=== PATIENT | female | born 1940 | race Asian ===

== ENCOUNTER 2024-07-25 13:59 | Emergency (ER) | payer MEDICARE, OTHER, SELFPAY ==
--- NOTE | ~2024-07-25 | XR_ITS ---
EXAMINATION: XR humerus RT DATE: 07/25/2024 14:55 INDICATION: Right upper limb swelling. TECHNIQUE: 2 views of right humerus were obtained. COMPARISON: None. FINDINGS: Alignment is normal. No fracture. There is mild osteoarthritis of glenohumeral joint and ac romioclavicular joint. IMPRESSION: 1. Mild polyarticular osteoarthritis. Reviewed, dictated and finalized at location A.
[2024-07-25 14:24] VITALS: BP 171/74; PULSE 96; RESP 20; TEMP 37.1; O2SAT 96
--- NOTE | 2024-07-25 14:35 | ED.UPPEXIN ---
HPI - Extremity Injury (Upper) General Chief Complaint: Extremity Injury, Upper Stated Complaint: Bruise On Right Arm/Allergic Reaction Time Seen by Provider: 07/25/24 14:35 Source: patient Mode of arrival: ambulatory Limitations: no limitations History of Present Illness HPI narrative: 84 yo F presents with bruising to R upper arm. Pt noticed bruising this morning when she woke up. hx of dementia. Does not remember injury. Assisted livign staff and pt's daughter (POA) concerned for injury and pt doesn't remember. Requesting x-ray. Daughter also states that pt has male friend at [facility] living. pt denies intercourse but daughter would like STI testing as precaution. Pt denies urinary symptoms, no vaginal discharge or irritation. All systems reviewed and negative except as noted above. Related Data Home Medications Medication Instructions Recorded Confirmed aspirin 81 mg tablet,delayed 81 mg PO DAILY 07/25/24 07/25/24 release cholecalciferol (vitamin D3) 50 50 mcg PO DAILY 07/25/24 07/25/24 mcg (2,000 unit) capsule (Vitamin D3) donepezil 10 mg tablet (Aricept) 10 mg PO DAILY 07/25/24 07/25/24 glucosamine sulf dipot 1 cap PO DAILY 07/25/24 07/25/24 chlr,msm,chond 550 mg-C 30 mg-dread 1 mg capsule (Glucosamine Chondroitin) ketotifen fumarate 0.025 % (0.035 2 drp EACH EYE DAILY 07/25/24 07/25/24 %) eye drops (Zaditor) melatonin 1 mg tablet 1 mg PO HS PRN Sleep 07/25/24 07/25/24 memantine 10 mg tablet 10 mg PO DAILY 07/25/24 07/25/24 sertraline 50 mg tablet 50 mg PO DAILY 07/25/24 07/25/24 Allergies Allergy/AdvReac Type Severity Reaction Status Date / Time No Known Allergies Allergy Verified 07/25/24 14:52 Review of Systems Review of Systems: CONSTITUTIONAL: Denies fever, chills, or sweats. EYES: Denies visual changes, redness, or discharge. ENT: Denies rhinorrhea, congestion, sore throat, or otalgia. CARDIOVASCULAR: Denies chest pain, palpitations, or edema. RESPIRATORY: Denies cough or dyspnea. GASTROINTESTINAL: Denies abdominal pain, nausea, vomiting, or diarrhea. GENITOURINARY: Denies dysuria or hematuria. SKIN: Denies rash or itching. MUSCULOSKELETAL: Denies back pain, joint pain, or myalgia. Reports bruise to right upper arm with mild swelling. NEUROLOGIC: Denies headache, numbness, or weakness. PSYCHIATRIC: Denies anxiety or depression. All other systems reviewed are negative, except as documented in HPI. PMFSH Comments At time of signature, agree with nursing past medical, surgical, social and family history. There is no relevant family history pertinent to the presenting complaint. Exam Narrative: GENERAL: This is a well-nourished, well-developed patient, in no apparent distress. HEAD: normocephalic, atraumatic. EYES: PERRL. Sclera clear/white. Vision is grossly intact. EARS: External ears normal NOSE: External nose normal NECK: Neck supple, non-tender without lymphadenopathy, masses or thyromegaly. CARDIOVASCULAR: Regular rate and rhythm without murmurs, gallops, or rubs. RESPIRATORY: Clear to auscultation. Breath sounds equal bilaterally. No wheezes, rales, or rhonchi. SKIN: warm, Dry, intact with no suspicious lesions or rash, good texture and turgor. contusion to posterior-lateral aspect R upper arm approx. [id number] with purplish-blue coloring NEURO: awake, alert, and oriented to person, place and time. There were no obvious focal neurologic abnormalities. EXTREMITIES: No joint tenderness, effusion, or edema noted. Course Course Level of Care: Express Care Visit Vital Signs Vital signs: Vital Signs Temperature 37.1 C 07/25/24 14:24 Pulse Rate 96 07/25/24 14:24 Respiratory Rate 20 07/25/24 14:24 Blood Pressure 171/74 H 07/25/24 14:24 Pulse Oximetry 96 07/25/24 14:24 Oxygen Delivery Room Air 07/25/24 14:24 Temperature 37.1 C 07/25/24 14:24 Pulse Rate 96 07/25/24 14:24 Respiratory Rate 20 07/25/24 14:24 Blood Pressure 171/7
[2024-07-25 20:04] LABS: Trichomonas Vag PCR NOT DETECTED (NOT DETECTE)
[2024-07-25 20:27] LABS: Chlamydia trachomatis NOT DETECTED (NOT DETECTE); Neisseria gonorrhoeae PCR NOT DETECTED (NOT DETECTE)
== END 2024-07-25 15:30 | disposition home or self-care (01) ==
PROVIDERS: Emergency Provider Nurse Practitioner Family
DX: S40.021A Contusion of right upper arm, initial encounter (principal); X58.XXXA Exposure to other specified factors, initial encounter; Z11.3 Encounter for screening for infections with a predominantly sexual mode of transmission; F03.90 Unspecified dementia, unspecified severity, without behavioral disturbance, psychotic disturbance, mood disturbance, and anxiety; M10.9 Gout, unspecified; Z96.641 Presence of right artificial hip joint; F32.A Depression, unspecified; Z79.84 Long term (current) use of oral hypoglycemic drugs
CPT/HCPCS: 73060; 87491; 87591; 87661; 99213; G0463

== ENCOUNTER 2024-10-12 20:35 | Inpatient (IN) | payer MEDICARE, OTHER, SELFPAY ==
[2024-10-12] VITALS (9 sets, daily range): BP systolic 147–169; BP diastolic 59–91; PULSE 100–110; RESP 18–28; TEMP 37.1; O2SAT 92–95
--- NOTE | ~2024-10-12 | XR_ITS ---
XR chest 2V Ordering provider: Siddharth Cary History: 84 years Female with . Weakness . Comparison: None. FINDINGS: MEDIASTINUM: The cardiac silhouette is not enlarged. Bilateral hilar lymph node calcification. LUNGS: No effusions or pneumothorax. Opacification in the left lung base is seen suggestive of atelec tasis versus pneumonia. OTHER: No free air under the diaphragm. Degenerative changes of the spine. IMPRESSION: Minimal opacification in the left lung base suggestive of atelectasis versus pneumonia. Clinical doreen elation advised. Reviewed, dictated and finalized at location A. ITY SALES REPRESENTATIVE IMPRESSION: Minimal opacification in the left lung base suggestive of atelectasis versus pn eumonia. Clinical correlation advised.
--- NOTE | ~2024-10-12 | CT_ITS ---
EXAMINATION: CT brain wo con DATE: 10/12/2024 22:42 INDICATION: Altered mental state, weakness TECHNIQUE: Computed tomography (CT) of the head was performed without intravenous contrast. The mA wa s adjusted according to patient size. Iterative reconstruction technique was employed. Exam dose: 68 1.00 mGy-cm total exam DLP. COMPARISON: None FINDINGS: Bilateral carotid siphon internal carotid artery calcifications. There is nonspecific dimin ished attenuation of the cerebral white matter, likely due to chronic small vessel ischemic change. M ild bilateral basal ganglia calcification. Moderate low cerebral and cerebellar volume loss. No subdural or epidural hematoma. No skull fracture or bone destruction. Paranasal sinuses and mastoid air cells are normally developed and aerated. No fracture or bone destr uction of the cranial vault. IMPRESSION: Cerebral atherosclerosis and chronic small vessel ischemic changes of the white matter No acute intracranial finding or skull fracture Reviewed, dictated and finalized at Location [facility]. Reviewed, dictated and finalized at location A. OL AGE PROGRAM ASSOCIATE
--- NOTE | 2024-10-12 20:47 | ECG_ITS ---
Test Date: 2024-10-12 20:49:52 Measurements Intervals [place] Rate: 109 P: 49 AR: 156 QRS: 5 QRSD: 69 T: 58 QT: 330 QTc: 445 Interpretive Statements SINUS TACHYCARDIA LEFT ATRIAL ENLARGEMENT [-0.15mV P-WAVE IN V1/V2] SEPTAL MYOCARDIAL INFARCTION , OF INDETERMINATE AGE [40+ ms Q WAVE IN V1/V2] No previous ECG available for comparison Electronically Signed On 10-16-2024 15:58:19 [employer] by Jody Law M.D.
[2024-10-12 21:05] LABS: Basophils Percent Auto 0.1 % (0.2-1.2); Eosinophils Percent Auto 0.1 % (0-4.4); Hematocrit 42.7 % (37.0-47.0); Hemoglobin 14.5 g/dL (12.0-15.0); Immature Granulocyte Absolute 0.02 K/mm3 (0.00-0.031); Immature Granulocyte Percent A 0.3 % (0-0.5); Lymphocytes Absolute Auto 0.33 K/mm3 (0.9-3.2); Lymphocytes Percent Auto 4.5 % (18.3-44.2); Mean Corpuscular Volume 82.4 fl (80-100); Mean Platelet Volume 9.6 fl (7.4-10.4); Monocytes Absolute Auto 0.5 K/mm3 (0.1-0.6); Monocytes Percent Auto 7.1 % (2.6-8.5); Neutrophils Absolute Auto 6.4 K/mm3 (1.3-6.7); Neutrophils Percent Auto 87.9 % (45.5-73.1); Platelet Count Result 210 k/mm3 (150-375); Red Blood Count 5.18 M/mm3 (4.2-5.4); Red Cell Distribution Width 14.1 % (11.5-14.5); White Blood Count 7.3 K/mm3 (4.5-10.0)
[2024-10-12 21:14] LABS: Lactic Acid Reflex 1.7 mmol/L (0.7-2.0)
[2024-10-12 21:15] LABS: Alanine Aminotransferase 27 U/L (6-35); Albumin Level 3.8 g/dL (3.5-5.1); Alkaline Phosphatase 74 U/L (38-126); Anion Gap 5 mmol/L (4-12); Aspartate Amino Transferase 39 U/L (14-36); Bilirubin,Total 0.7 mg/dL (0.2-1.3); Blood Urea Nitrogen 14 mg/dL (7-17); Calcium 8.7 mg/dL (8.4-10.2); Carbon Dioxide 25 mmol/L (22-30); Chloride 100 mmol/L (98-107); Estimated Glomerular Filt Rate > 60; Glucose 147 mg/dL (65-110); Potassium 3.6 mmol/L (3.4-5.0); Sodium 130 mmol/L (137-145)
[2024-10-12] MEDS: SODIUM CHLORIDE 0.9% IV 1,000 ML 999 ML IV CONT ×2 (21:44→23:29)
--- NOTE | 2024-10-12 21:58 | ED_ITS ---
HPI - Weakness General Chief complaint: Weakness Stated complaint: GENERALIZED WEAKNESS X 24 HOURS Time Seen by Provider: 10/12/24 21:10 Source: patient Mode of arrival: EMS Limitations: no limitations History of Present Illness HPI Narrative: Patient is an 84 y/o female who presents to the ED via EMS with report of weakness. Patient is a resident of [facility]. Family at bedside assisted in providing information. History of dementia, alert and oriented x2. Reports they were notified by facility today the patient was increasingly weak. Was found sitting on the ground in her bedroom and was unable to get up on her own. Typically patient is able to ambulate with a walker, care for herself, toilet herself. Today unable to walk even with assistance. Family does report that patient has had a cough, congestion, URI symptoms over the last couple of days. Denied known fevers. Staff reported that patient has had a few episodes of vomiting recently. Patient denies any current pain. Related Data Home Medications ?Medication ?Instructions ?Recorded ?Confirmed ?Last Taken ?Type aspirin 81 mg tablet,delayed 81 mg PO DAILY 07/25/24 07/25/24 Unknown History release cholecalciferol (vitamin D3) 50 50 mcg PO DAILY 07/25/24 07/25/24 Unknown History mcg (2,000 unit) capsule (Vitamin D3) donepezil 10 mg tablet (Aricept) 10 mg PO DAILY 07/25/24 07/25/24 Unknown History glucosamine sulf dipot 1 cap PO DAILY 07/25/24 07/25/24 Unknown History chlr,msm,chond 550 mg-C 30 mg-dread 1 mg capsule (Glucosamine Chondroitin) ketotifen fumarate 0.025 % (0.035 2 drp EACH EYE DAILY 07/25/24 07/25/24 Unknown History %) eye drops (Zaditor) melatonin 1 mg tablet 1 mg PO HS PRN Sleep 07/25/24 07/25/24 Unknown History memantine 10 mg tablet 10 mg PO DAILY 07/25/24 07/25/24 Unknown History sertraline 50 mg tablet 50 mg PO DAILY 07/25/24 07/25/24 Unknown History Allergies Allergy/AdvReac Type Severity Reaction Status Date / Time No Known Allergies Allergy Verified 07/25/24 14:52 Review of Systems 2 Review of Systems: All systems reviewed & are unremarkable except as noted in HPI. All systems reviewed & are unremarkable except as noted in HPI and below Exam 2 Narrative: GENERAL: Elderly, somewhat tremulous. Non-toxic, in no acute distress. HEAD: Normocephalic, atraumatic. RESPIRATORY: Airway patent, respirations are tachypneic but nonlabored. No significant focal lung sounds. CARDIOVASCULAR: Tachycardic with regular rhythm without murmurs, rubs, or gallops. ABDOMINAL: Soft, nontender, nondistended. Normoactive BS. MUSCULOSKELETAL: Moves all extremities. No gross deformities. SKIN: Warm, dry, normal color. NEURO: Alert, answers most questions, intermittently confused. Follows commands. Speech clear. Cranial nerves II-XII grossly intact. Steady gait. Somewhat tremulous, no ataxic movements. No appreciable focal deficits. PSYCHIATRIC: Appropriate mood and affect. Normal interaction. Course Vital Signs Vital signs: Vital Signs Temperature 98.8 F 10/12/24 20:39 Pulse Rate 110 H 10/12/24 20:39 Respiratory Rate 26 H 10/12/24 20:39 Blood Pressure 169/91 H 10/12/24 20:39 Pulse Oximetry 93 10/12/24 20:39 Oxygen Delivery Room Air 10/12/24 20:39 Temperature 98.7 F 10/12/24 22:09 Pulse Rate 101 H 10/13/24 00:31 Respiratory Rate 21 H 10/13/24 00:31 Blood Pressure 161/77 H 10/13/24 00:31 Pulse Oximetry 93 10/13/24 00:31 Oxygen Delivery Room Air 10/12/24 20:39 MDM - Weakness MDM Narrative Medical decision making narrative: Patient presented to ED from local assisted living facility with weakness, unable to ambulate today. Has had URI symptoms over the last few days. Patient tachycardic and tachypneic upon arrival. Afebrile. No appreciable focal deficits on exam. Laboratory studies without leukocytosis. Stable H&H. Sodium slightly low at 130. Fluids ongoing. Stable kidney function. Otherwise stable electrolytes. Lactic acid within normal range at 1.7. Urine with 2+ ketones, no significant signs of infection. Small amount of blood. Viral swabs are negative. EKG with sinus tachycardia, no significant ST changes. Chest x-ray with possible left-sided pneumonia. CT brain was obtained and w/o acute findings. Discussed lab and imaging findings with patient and family at bedside. Patient is in an assisted living facility. Based on her weakness now, she would not be able to return as she is requiring much more assistance than usual. Given weakness in the setting of pneumonia and dehydration, will admit for further evaluation, PT/OT, possible acute rehab. Discussed case with Dr. Fields, hospitalist, accepted patient for admission. Patient and family in agreement with plan. CAP abx started in the ED. Medical Records Attestation: I reviewed the patient's medical records. Lab Data Attestation: I reviewed the patient's lab results. 10/12/24 20:58 10/12/24 20:58 Labs: Lab Results 10/12/24 10/12/24 Range/Units 20:58 21:42 WBC 7.3 (4.5-10.0) K/mm3 RBC 5.18 (4.2-5.4) M/mm3 Hgb 14.5 (12.0-15.0) g/dL Hct 42.7 (37.0-47.0) % MCV 82.4 (80-100) fl MCH 28.0 (26-34) pg MCHC 34.0 (32-36) g/dl RDW 14.1 (11.5-14.5) % Plt Count 210 (150-375) k/mm3 MPV 9.6 (7.4-10.4) fl Immature Gran % (Auto) 0.3 (0-0.5) % Neut % (Auto) 87.9 H (45.5-73.1) % Lymph % (Auto) 4.5 L (18.3-44.2) % [place] % (Auto) 7.1 (2.6-8.5) % Eos % (Auto) 0.1 (0-4.4) % Baso % (Auto) 0.1 L (0.2-1.2) % Lymph # (Auto) 0.33 L (0.9-3.2) K/mm3 [place] # (Auto) 0.5 (0.1-0.6) K/mm3 Eos # (Auto) 0.0 (0-0.3) K/mm3 Baso # (Auto) 0.0 (0.0-0.1) K/mm3 Abs Immat Gran (auto) 0.02 (0.00-0.031) K/mm3 Absolute Neuts (auto) 6.4 (1.3-6.7) K/mm3 Absolute Nucleated RBC 0.000 (0.0-0.012) K/mm3 Nucleated RBC % 0.0 (0.0-0.2) % Sodium 130 L (137-145) mmol/L Potassium 3.6 (3.4-5.0) mmol/L Chloride 100 (98-107) mmol/L Carbon Dioxide 25 (22-30) mmol/L Anion Gap 5 (4-12) mmol/L BUN 14 (7-17) mg/dL Creatinine 0.60 L (0.7-1.0) mg/dL Estim Creat Clear Calc Not Reportable Estimated GFR > 60 (59 - ) Glucose 147 H (65-110) mg/dL Lactic Acid 1.7 (0.7-2.0) mmol/L Calcium 8.7 (8.4-10.2) mg/dL Magnesium 1.8 (1.6-2.3) mg/dL Total Bilirubin 0.7 (0.2-1.3) mg/dL AST 39 H (14-36) U/L ALT 27 (6-35) U/L Alkaline Phosphatase 74 (38-126) U/L Total Protein 7.0 (6.3-8.2) g/dL Albumin 3.8 (3.5-5.1) g/dL Urine Color Dark yellow (Yellow) Urine Appearance Clear (Clear) Urine pH 6.0 (5.0-9.0) Ur Specific [place] 1.023 (1.001-1.035) Urine Protein 2+ H (Negative) mg/dL Urine Glucose (UA) Negative (Negative) mg/dL Urine Ketones 2+ H (Negative) mg/dL Ur Blood (Man) 1+ H (Negative) Urine Nitrate Negative (Negative) Urine Bilirubin 1+ H (Negative) Urine Urobilinogen 1.0 (<2.0) mg/dL Add Ur Microanalysis Reviewed Leukocyte Esterase Rfl Negative (Negative) KWAME/UL Urine RBC 11-20 H (0-2) /hpf Urine WBC 0-5 (0-3) /hpf Ur Squamous Epith Cells None seen (Few) /hpf Urine Bacteria None seen /hpf Urine Casts 0-2 Influenza A (RT-PCR) Negative (Negative) Influenza B (RT-PCR) Negative (Negative) RSV (RT-PCR) Negative (Negative) SARS-CoV-2 RNA (RT-PCR) Negative (Negative) Imaging Data Attestation: I personally reviewed and interpreted this imaging study as follows: Radiologist's impression: ITS Impressions Chest X-Ray 10/12/24 21:43 IMPRESSION: Minimal opacification in the left lung base suggestive of atelectasis versus pneumonia. Clinical correlation advised. STAT RAD CT brain: No acute intracranial hemorrhage. No midline shift or mass effect. The territory howard-white matter differentiation is maintained throughout. Age-related cerebral volume loss. Periventricular and subcortical white matter hypoattenuation, consistent with chronic microangiopathy. ECG Data EKG #1: Attestation: I personally reviewed and interpreted this ECG as follows: ECG completion date: 10/13/24 ECG completion time: 20:49 EKG Interpretation: tachycardia (109), sinus rhythm and non-specific ST changes Discharge Plan Discharge Clinical Impression: Weakness, Dehydration Pneumonia Qualifiers: Pneumonia type: due to unspecified organism Laterality: left Lung location: u nspecified part of lung Qualified Code(s): J18.9 - Pneumonia, unspecified organism Patient Disposition: Still a Patient Condition: Stable Patient Language: Kinyarwanda Prescriptions: No Action ketotifen fumarate [Zaditor] 0.025 % (0.035 %) Drops 2 drp EACH EYE DAILY donepezil [Aricept] 10 mg Tablet 10 mg PO DAILY aspirin 81 mg tablet,delayed release (DR/EC) 81 mg PO DAILY sertraline 50 mg tablet 50 mg PO DAILY melatonin 1 mg Tablet 1 mg PO HS PRN (Reason: Sleep) memantine 10 mg tablet 10 mg PO DAILY cholecalciferol (vitamin D3) [Vitamin D3] 50 mcg (2,000 unit) Capsule 50 mcg PO DAILY Glucosamine Chondroitin 550-30-1 mg Capsule 1 cap PO DAILY Follow-up/Referrals: PHYSICIAN,MINE SURVEYOR [Primary Care Provider] -
[2024-10-12 22:12] LABS: Magnesium 1.8 mg/dL (1.6-2.3)
[2024-10-12 22:39] LABS: Add Urine Microscopic? YES; Appearance Urine Clear (Clear); Bacteria Urine None Seen /hpf; Bilirubin Urine 1+ (Negative); Blood Urine 1+ (Negative); Color Urine Dark Yellow (Yellow); Glucose Urine UA Negative (Negative); Ketones Urine 2+ mg/dL (Negative); Leukocyte Esterase Ur Negative LEU/UL (Negative); Need Manual Microscopic Reviewed; Nitrate Urine Negative (Negative); Non Pathogenic Casts 0-2; Protein Urine 2+ mg/dL (Negative); Specific Grav Ur 1.023 (1.001-1.035); Squamous Epithelial Cell Urine None Seen /hpf (Few); WBC Urine 0-5 /hpf (0-3)
[2024-10-12 22:44] LABS: Influenza A QL RT-PCR Negative (Negative); Influenza B QL RT-PCR Negative (Negative); RSV RNA, RT-PCR Negative (Negative); SARS-CoV-2 RNA PCR Negative (Negative)
[2024-10-13] VITALS (10 sets, daily range): BP systolic 117–164; BP diastolic 61–88; PULSE 86–102; RESP 16–29; TEMP 36.6–37.5; O2SAT 92–97; BMI 24.9
--- NOTE | 2024-10-13 01:36 | PC.NURSE ---
EDER Drew states we do not need to draw blood cultures before starting antibiotics.
[2024-10-13] MEDS: AZITHROMYCIN 500 MG/NS 250 ML 500 MG/250 ML BAG 250 MG IVPB (02:12)
[2024-10-13] MEDS: SODIUM CHLORIDE 0.9% IV 1,000 ML 75 ML IV CONT ×2 (02:16→16:45)
--- NOTE | 2024-10-13 02:47 | ADMGEN ---
This patient, Daisy West, was admitted to Medical Room 261-01. Patient/family oriented to hospital policies and general routines including ID bracelet, bed and alarms, visiting hours, pain management, procedures, bathroom and other care routines, personal items, smoking policy, room service/diet, and visiting hours. Information on how to activate the Rapid Response Team has been discussed. Patient/Family are encouraged to report perceived risks to care and to ask questions if they do not understand what they are told or what they should do.
[2024-10-13 09:33] LABS: Alanine Aminotransferase 24 U/L (6-35); Albumin Level 3.2 g/dL (3.5-5.1); Alkaline Phosphatase 60 U/L (38-126); Anion Gap 2 mmol/L (4-12); Aspartate Amino Transferase 40 U/L (14-36); Bilirubin,Total 0.6 mg/dL (0.2-1.3); Blood Urea Nitrogen 9 mg/dL (7-17); Calcium 7.8 mg/dL (8.4-10.2); Carbon Dioxide 24 mmol/L (22-30); Chloride 103 mmol/L (98-107); Estimated CRCL calculation 60 ml/min; Estimated Glomerular Filt Rate > 60; Glucose 114 mg/dL (65-110); Magnesium 1.7 mg/dL (1.6-2.3); Potassium 3.2 mmol/L (3.4-5.0); Sodium 129 mmol/L (137-145)
[2024-10-13 09:39] LABS: Basophils Percent Auto 0.2 % (0.2-1.2); Hematocrit 37.9 % (37.0-47.0); Hemoglobin 12.8 g/dL (12.0-15.0); Immature Granulocyte Absolute 0.01 K/mm3 (0.00-0.031); Immature Granulocyte Percent A 0.2 % (0-0.5); Lymphocytes Absolute Auto 0.43 K/mm3 (0.9-3.2); Lymphocytes Percent Auto 7.7 % (18.3-44.2); Mean Corpuscular HGB Conc 33.8 g/dl (32-36); Mean Corpuscular Hemoglobin 27.9 pg (26-34); Mean Corpuscular Volume 82.6 fl (80-100); Mean Platelet Volume 9.7 fl (7.4-10.4); Monocytes Absolute Auto 0.5 K/mm3 (0.1-0.6); Monocytes Percent Auto 9.6 % (2.6-8.5); Neutrophils Absolute Auto 4.6 K/mm3 (1.3-6.7); Neutrophils Percent Auto 82.3 % (45.5-73.1); Platelet Count Result 195 k/mm3 (150-375); Red Blood Count 4.59 M/mm3 (4.2-5.4); Red Cell Distribution Width 14.1 % (11.5-14.5); White Blood Count 5.6 K/mm3 (4.5-10.0)
[2024-10-13] MEDS: DONEPEZIL HCL 10 MG TABLET PO (09:52)
[2024-10-13] MEDS: ASPIRIN 81 MG ENTERIC TABLET PO (09:52)
[2024-10-13] MEDS: POTASSIUM CHLORIDE 20 MEQ ER TABLET 40 MEQ PO (09:56)
[2024-10-13] MEDS: MAGNESIUM SULF 2 GM/WATER 50ML 2 GM/50 ML BAG IVPB (09:58)
--- NOTE | 2024-10-13 10:32 | P.HP_ITS ---
H&P: HPI History of Present Illness Date/Time: 10/13/24 10:32 Chief Complaint: weakness Narrative: Patient is an 84 year old female that came to the ED via EMS with report of weakness. Patient is a resident of [facility]. Patient has history of dementia, alert and oriented x2. Patient found to be increasingly weak at facility. Patient can typically ambulate with walker, care for herself, and toilet herself. Family reported to the ER that patient had a cough, congestion, and URI symptoms for the past couple of days. Patient reports that appetite has been decreased. Patient denies falls. Patient denies chest pain, palpitations, headache, dizziness, nausea, or vomiting. Laboratory studies without leukocytosis. Stable H&H. Sodium slightly low at 130. Fluids ongoing. Stable kidney function. Otherwise stable electrolytes. Lactic acid within normal range at 1.7. Urine with 2+ ketones, no significant signs of infection. Small amount of blood. Viral swabs are negative. EKG with sinus tachycardia, no significant ST changes. Chest x-ray with possible left- sided pneumonia. CT brain was obtained and w/o acute findings. Blood cultures obtained. Patient started on Azithromycin 500 mg IVPB daily and Ceftriaxone 1 gram IVPB daily. Review of Systems Review of Systems: All systems reviewed & are unremarkable except as noted in HPI and below PMFSH Family History Family History (Updated 10/13/24 @ 02:59 by Danielle Rico RN) Other Unknown family medical history Social History Social History Smoking status: Never smoker Alcohol intake: never Substance use: never Substance use type: does not use Do You Feel Safe in your Home?: Yes Lack of Transportation: No Lack of Food: Never True Current Housing: I Have Housing Concerned About Future Housing: No Difficulty Paying Gas/Electric Bills: No Difficulty Paying for Meds: No Currently Unemployed: No Education: Master's Degree or Higher Difficulty w/ Childcare or Family Care: No Spiritual care concerns: No Meds Home Medications and Allergies Home Medications ?Medication ?Instructions ?Recorded ?Confirmed ?Type aspirin 81 mg tablet,delayed 81 mg PO DAILY 07/25/24 10/13/24 History release donepezil 10 mg tablet (Aricept) 10 mg PO DAILY 07/25/24 10/13/24 History acetaminophen 650 mg 650 mg PO Q6H PRN pain 10/13/24 10/13/24 History tablet,extended release (8 Hour Pain Reliever) glucosamine sulfate 500 mg tablet 500 mg PO DAILY 10/13/24 10/13/24 History (Glucosamine) Allergies Allergy/AdvReac Type Severity Reaction Status Date / Time No Known Allergies Allergy Verified 07/25/24 14:52 Vital Signs Vital Signs - 24 hr 10/12/24 20:39 10/12/24 20:39 10/12/24 20:46 Temperature 98.8 F Pulse Rate 110 H 110 H 109 H Respiratory Rate 26 H 27 H Blood Pressure 169/91 H 168/87 H Pulse Oximetry 93 94 Oxygen Delivery Room Air 10/12/24 21:01 10/12/24 21:42 10/12/24 21:45 Temperature Pulse Rate 107 H 109 H 110 H Respiratory Rate 28 H 27 H 21 H Blood Pressure 162/89 H 162/89 H 162/86 H Pulse Oximetry 95 95 92 Oxygen Delivery 10/12/24 21:47 10/12/24 22:09 10/12/24 23:30 Temperature 98.7 F Pulse Rate 110 H 100 Respiratory Rate 28 H 18 Blood Pressure 157/89 H 147/59 H Pulse Oximetry 93 95 Oxygen Delivery 10/12/24 23:40 10/13/24 00:31 10/13/24 01:16 Temperature Pulse Rate 102 H 101 H 99 Respiratory Rate 19 21 H 29 H Blood Pressure 147/59 H 161/77 H 161/88 H Pulse Oximetry 94 93 95 Oxygen Delivery 10/13/24 02:15 10/13/24 02:45 10/13/24 02:45 Temperature 99.5 F Pulse Rate 101 H 96 Respiratory Rate 21 H 18 Blood Pressure 135/70 164/77 H Pulse Oximetry 97 96 Oxygen Delivery Room Air 10/13/24 06:00 10/13/24 09:49 Temperature 98 F 98.2 F Pulse Rate 94 86 Respiratory Rate 18 16 Blood Pressure 158/77 H 152/83 H Pulse Oximetry 95 94 Oxygen Delivery Exam Const: General: comfortable and no acute distress Eyes: Sclera: sclerae normal Pupils: Equal, round and reactive pupils present Neck: Neck: supple Resp: Effort & Inspection: normal respiratory effort Other: slightly diminished. Cardio: Rate: regular rate Rhythm: regular rhythm GI: GI Palp: Yes Soft to palpation Auscultation: normal bowel sounds Skin: General skin exam: no rashes or lesions noted Neuro: Speech: normal speech Extrem: General: no pedal edema Psych: Mental Status: mental status grossly normal Affect: normal affect H&P: Results Labs Labs: Short CBC 10/12/24 10/13/24 Range/Units 20:58 09:11 WBC 7.3 5.6 (4.5-10.0) K/mm3 Hgb 14.5 12.8 (12.0-15.0) g/dL Hct 42.7 37.9 (37.0-47.0) % Plt Count 210 195 (150-375) k/mm3 BMP 10/12/24 10/13/24 20:58 09:11 Sodium 130 L 129 L Potassium 3.6 3.2 L Chloride 100 103 Carbon Dioxide 25 24 BUN 14 9 D Creatinine 0.60 L 0.50 L Glucose 147 H 114 H Calcium 8.7 7.8 L Liver Function 10/12/24 10/13/24 Range/Units 20:58 09:11 Total Bilirubin 0.7 0.6 (0.2-1.3) mg/dL AST 39 H 40 H (14-36) U/L ALT 27 24 (6-35) U/L Alkaline Phosphatase 74 60 (38-126) U/L Albumin 3.8 3.2 L (3.5-5.1) g/dL Urine 10/12/24 Range/Units 21:42 Urine Color Dark yellow (Yellow) Urine Appearance Clear (Clear) Urine pH 6.0 (5.0-9.0) Ur Specific [place] 1.023 (1.001-1.035) Urine Protein 2+ H (Negative) mg/dL Urine Glucose (UA) Negative (Negative) mg/dL Assessment and Plan Assessment and plan (1) Pneumonia: Qualifiers: Laterality: left Lung location: unspecified part of lung Pneumonia type: due to unspecified organism Qualified Code(s): J18.9 - Pneumonia, unspecified organism Code(s): J18.9 - Pneumonia, unspecified organism Status: Acute Assessment and Plan: * Azithromycin 500 mg IVPB daily. * Ceftriaxone 1 gram IVPB daily. * NS @ 75 ml/hr * Monitor labs. * Blood cultures pending. * Encourage oral intake. (2) Weakness: Code(s): R53.1 - Weakness Status: Acute Assessment and Plan: * PT/OT (3) Dehydration: Code(s): E86.0 - Dehydration Status: Acute Assessment and Plan: * NS @75 ml/hr. * Encourage oral intake. (4) Hyponatremia: Code(s): E87.1 - Hypo-osmolality and hyponatremia Status: Acute Assessment and Plan: * Sodium 129 * NS @ 75 ml/hr. Quality VTE Prophylaxis VTE prophylaxis: mechanical ordered Hospitalist MIPS Advance Care Plan I have confirmed that the patient's Advanced Care Plan is present, code status is documented, or surrogate decision maker is listed in patient medical record.: Yes Medication Reconciliation I have utilized all available resources to obtain, update and review the patients current medications (includes all prescriptions, OTC, herbals, cannabis, and nutritional supplements).: Yes
[2024-10-13 11:30] LABS: MRSA (PCR) NOT DETECTED (NOT DETECTE)
[2024-10-14 01:46] VITALS: BP 159/77; PULSE 73; RESP 16; O2SAT 96
[2024-10-14] MEDS: AZITHROMYCIN 500 MG/NS 250 ML 500 MG/250 ML BAG 250 MG IVPB (02:21)
[2024-10-14 05:49] LABS: Basophils Percent Auto 0.3 % (0.2-1.2); Eosinophils Percent Auto 0.7 % (0-4.4); Hematocrit 39.2 % (37.0-47.0); Hemoglobin 13.3 g/dL (12.0-15.0); Immature Granulocyte Absolute 0.03 K/mm3 (0.00-0.031); Immature Granulocyte Percent A 0.5 % (0-0.5); Lymphocytes Percent Auto 10.4 % (18.3-44.2); Mean Corpuscular HGB Conc 33.9 g/dl (32-36); Mean Corpuscular Hemoglobin 28.1 pg (26-34); Mean Corpuscular Volume 82.9 fl (80-100); Mean Platelet Volume 9.6 fl (7.4-10.4); Monocytes Absolute Auto 0.8 K/mm3 (0.1-0.6); Monocytes Percent Auto 13.7 % (2.6-8.5); Neutrophils Absolute Auto 4.3 K/mm3 (1.3-6.7); Neutrophils Percent Auto 74.4 % (45.5-73.1); Platelet Count Result 185 k/mm3 (150-375); Red Blood Count 4.73 M/mm3 (4.2-5.4); Red Cell Distribution Width 13.9 % (11.5-14.5); White Blood Count 5.8 K/mm3 (4.5-10.0)
[2024-10-14 06:00] VITALS: BP 175/81; PULSE 83; RESP 16; TEMP 36.9; O2SAT 95
[2024-10-14 06:17] LABS: Alanine Aminotransferase 31 U/L (6-35); Albumin Level 3.1 g/dL (3.5-5.1); Alkaline Phosphatase 51 U/L (38-126); Anion Gap 4 mmol/L (4-12); Aspartate Amino Transferase 50 U/L (14-36); Bilirubin,Total 0.7 mg/dL (0.2-1.3); Blood Urea Nitrogen 10 mg/dL (7-17); Calcium 7.7 mg/dL (8.4-10.2); Carbon Dioxide 24 mmol/L (22-30); Chloride 106 mmol/L (98-107); Estimated CRCL calculation 73 ml/min; Estimated Glomerular Filt Rate > 60; Glucose 92 mg/dL (65-110); Magnesium 2.2 mg/dL (1.6-2.3); Potassium 3.7 mmol/L (3.4-5.0); Sodium 134 mmol/L (137-145)
[2024-10-14 09:02] VITALS: O2SAT 95
[2024-10-14] MEDS: DONEPEZIL HCL 10 MG TABLET PO (09:02)
[2024-10-14] MEDS: ASPIRIN 81 MG ENTERIC TABLET PO (09:02)
[2024-10-14] MEDS: SODIUM CHLORIDE 0.9% IV 1,000 ML 75 ML IV CONT ×2 (09:05→22:30)
--- NOTE | 2024-10-14 10:35 | P.PNIM_ITS ---
Progress Note: A&P Assessment and Plan (1) Pneumonia: Qualifiers: Laterality: left Lung location: unspecified part of lung Pneumonia type: due to unspecified organism Qualified Code(s): J18.9 - Pneumonia, unspecified organism Code(s): J18.9 - Pneumonia, unspecified organism Status: Acute Assessment and Plan: * Azithromycin 500 mg PO daily. * Ceftriaxone 1 gram IVPB daily switched to Augmentin 875-125 1 tab PO q 12. * NS @ 75 ml/hr * Monitor labs. * Blood cultures pending. * Encourage oral intake. (2) Weakness: Code(s): R53.1 - Weakness Status: Acute Assessment and Plan: * PT/OT (3) Dehydration: Code(s): E86.0 - Dehydration Status: Acute Assessment and Plan: * NS @75 ml/hr. * Encourage oral intake. (4) Hyponatremia: Code(s): E87.1 - Hypo-osmolality and hyponatremia Status: Acute Assessment and Plan: * Sodium 134. * NS @ 75 ml/hr. Subjective Date/time seen: 10/14/24 10:35 Interval history: Patient denies chest pain, palpitations, shortness of breath, sputum with color, headache, or dizziness. Patient reports that she is starting to increase oral intake. Review of Systems Review of Systems: All systems reviewed & are unremarkable except as noted in HPI and below Exam Const: General: comfortable and no acute distress Eyes: Sclera: sclerae normal Resp: Other: Slightly diminished. Cardio: Rate: regular rate Rhythm: regular rhythm GI: GI Palp: Yes Soft to palpation Auscultation: normal bowel sounds Skin: General skin exam: no rashes or lesions noted Neuro: Speech: normal speech Extrem: General: no pedal edema Psych: Mental Status: mental status grossly normal Affect: normal affect Objective Data Vital Signs Vital Signs: Vital Signs - 24 hr 10/13/24 11:16 10/13/24 16:25 10/13/24 19:36 Temperature 99.2 F Pulse Rate 88 Respiratory Rate 18 Blood Pressure 157/78 H Pulse Oximetry 94 Oxygen Delivery Room Air Room Air 10/13/24 22:09 10/13/24 22:16 10/14/24 06:00 Temperature 98.5 F Pulse Rate 102 H 86 83 Respiratory Rate 16 18 16 Blood Pressure 117/69 152/61 H 175/81 H Pulse Oximetry 92 94 95 Oxygen Delivery 10/14/24 09:02 Temperature Pulse Rate Respiratory Rate Blood Pressure Pulse Oximetry 95 Oxygen Delivery Room Air Intake/Output Intake/Output: Intake & Output 10/11/24 10/12/24 10/13/24 10/14/24 23:59 23:59 23:59 23:59 Intake Total 1000 2700 1820 Output Total 75 1500 Balance 925 1200 1820 Meds/Results Medications: Active Medications Generic Name Dose Route Start Last Admin Trade Name Freq PRN Reason Stop Dose Admin Acetaminophen 650 mg 10/13/24 01:25 Acetaminophen 325 Mg Tablet PO Q4H PRN Mild Pain (1-3) or Fever Aspirin 81 mg 10/13/24 09:00 10/14/24 09:02 Aspirin 81 Mg Enteric Tablet PO 81 mg DAILY RAE Administration Dextrose 12.5 gm 10/13/24 01:25 Dextrose 50% 25 Gm/50 Ml Syringe IV PUSH PRN PRN Hypoglycemia Protocol Donepezil HCl 10 mg 10/13/24 09:00 10/14/24 09:02 Donepezil Hcl 10 Mg Tablet PO 10 mg DAILY RAE Administration Glucagon 1 mg 10/13/24 01:25 Glucagon For Inj 1 Mg Vial IM PRN PRN Hypoglycemia Protocol Glucose 15 gm 10/13/24 01:25 Glucose Oral Gel 15 Gm Of Glucse In 37.5 Gm Tube PO PRN PRN Hypoglycemia Protocol Ceftriaxone Sodium 1 gm in 50 mls @ 100 mls/hr 10/14/24 02:00 10/14/24 01:49 Rocephin 1 Gm/Ns 50 Ml IVPB Infused Q24H RAE Infusion Sodium Chloride 1,000 mls @ 75 mls/hr 10/13/24 01:25 10/14/24 09:05 Normal Saline Iv IV CONT 75 mls/hr .[id number] RAE Administration Dextrose 1,000 mls @ 100 mls/hr 10/13/24 01:25 Dextrose 5% 1,000 Ml IVPB PRN PRN Hypoglycemia Protocol Azithromycin 500 mg in 250 mls @ 250 mls/hr 10/14/24 03:00 10/14/24 03:31 Zithromax IVPB Infused Q24H RAE Infusion Prochlorperazine Edisylate 10 mg 10/13/24 08:54 Prochlorperazine Edisylate 10 Mg/2 Ml Vial IV PUSH Q6H PRN Nausea And Vomiting Radiology Results: ITS Impressions Chest X-Ray 10/12/24 21:43 IMPRESSION: Minimal opacification in the left lung base suggestive of atelectasis versus pneumonia. Clinical correlation advised. Head CT 10/13/24 10:13 IMPRESSION: Cerebral atherosclerosis and chronic small vessel ischemic changes of the white matter No acute intracranial finding or skull fracture Labs Labs: Laboratory Results - last 24 hr 10/13/24 10/14/24 10:03 05:39 WBC 5.8 RBC 4.73 Hgb 13.3 Hct 39.2 MCV 82.9 MCH 28.1 MCHC 33.9 RDW 13.9 Plt Count 185 MPV 9.6 Immature Gran % (Auto) 0.5 Neut % (Auto) 74.4 H Lymph % (Auto) 10.4 L [place] % (Auto) 13.7 H Eos % (Auto) 0.7 Baso % (Auto) 0.3 Lymph # (Auto) 0.60 L [place] # (Auto) 0.8 H Eos # (Auto) 0.0 Baso # (Auto) 0.0 Abs Immat Gran (auto) 0.03 Absolute Neuts (auto) 4.3 Absolute Nucleated RBC 0.000 Nucleated RBC % 0.0 Sodium 134 L Potassium 3.7 Chloride 106 Carbon Dioxide 24 Anion Gap 4 BUN 10 Creatinine 0.40 L Estim Creat Clear Calc 73 Estimated GFR > 60 Glucose 92 Calcium 7.7 L Magnesium 2.2 Total Bilirubin 0.7 AST 50 H ALT 31 Alkaline Phosphatase 51 Total Protein 6.0 L Albumin 3.1 L Nasal MRSA (PCR) Not detected Quality VTE Prophylaxis VTE prophylaxis: mechanical ordered
[2024-10-14 15:37] VITALS: BP 163/85; PULSE 82; RESP 16; TEMP 36.7; O2SAT 97
[2024-10-14] MEDS: AZITHROMYCIN 250 MG TABLET 500 MG PO (21:19)
[2024-10-14] MEDS: AMOXICILLIN/CLAVULANATE K 875-125 MG TAB 1 TABLET PO (21:20)
[2024-10-15 06:00] VITALS: BP 160/82; PULSE 74; RESP 18; TEMP 36.7
[2024-10-15 06:24] LABS: Basophils Percent Auto 0.3 % (0.2-1.2); Eosinophils Absolute Auto 0.1 K/mm3 (0-0.3); Eosinophils Percent Auto 1.4 % (0-4.4); Hematocrit 39.9 % (37.0-47.0); Hemoglobin 13.3 g/dL (12.0-15.0); Immature Granulocyte Absolute 0.04 K/mm3 (0.00-0.031); Immature Granulocyte Percent A 0.6 % (0-0.5); Lymphocytes Absolute Auto 0.75 K/mm3 (0.9-3.2); Lymphocytes Percent Auto 11.4 % (18.3-44.2); Mean Corpuscular HGB Conc 33.3 g/dl (32-36); Mean Corpuscular Hemoglobin 27.5 pg (26-34); Mean Corpuscular Volume 82.4 fl (80-100); Mean Platelet Volume 9.8 fl (7.4-10.4); Monocytes Absolute Auto 0.8 K/mm3 (0.1-0.6); Monocytes Percent Auto 11.4 % (2.6-8.5); Neutrophils Absolute Auto 4.9 K/mm3 (1.3-6.7); Neutrophils Percent Auto 74.9 % (45.5-73.1); Platelet Count Result 206 k/mm3 (150-375); Red Blood Count 4.84 M/mm3 (4.2-5.4); Red Cell Distribution Width 13.5 % (11.5-14.5); White Blood Count 6.6 K/mm3 (4.5-10.0)
[2024-10-15 06:32] LABS: Alanine Aminotransferase 28 U/L (6-35); Albumin Level 3.1 g/dL (3.5-5.1); Alkaline Phosphatase 67 U/L (38-126); Anion Gap 6 mmol/L (4-12); Aspartate Amino Transferase 35 U/L (14-36); Bilirubin,Total 0.5 mg/dL (0.2-1.3); Blood Urea Nitrogen 8 mg/dL (7-17); Calcium 7.9 mg/dL (8.4-10.2); Carbon Dioxide 26 mmol/L (22-30); Chloride 103 mmol/L (98-107); Estimated CRCL calculation 68 ml/min; Estimated Glomerular Filt Rate > 60; Glucose 103 mg/dL (65-110); Magnesium 1.9 mg/dL (1.6-2.3); Potassium 2.9 mmol/L (3.4-5.0); Sodium 135 mmol/L (137-145)
[2024-10-15] MEDS: DONEPEZIL HCL 10 MG TABLET PO (09:30)
[2024-10-15] MEDS: ASPIRIN 81 MG ENTERIC TABLET PO (09:30)
[2024-10-15] MEDS: AMOXICILLIN/CLAVULANATE K 875-125 MG TAB 1 TABLET PO (09:30)
[2024-10-15] MEDS: POTASSIUM CHLORIDE 20 MEQ ER TABLET 40 MEQ PO ×2 (09:30→15:26)
--- NOTE | 2024-10-15 12:58 | PM.DS ---
DS: Admitting Diagnosis Discharge Date 10/15/24 Admitting Diagnosis weakness. DS: Discharge Diagnosis Discharge Diagnosis (1) Pneumonia: Qualifiers: Laterality: left Lung location: unspecified part of lung Pneumonia type: due to unspecified organism Qualified Code(s): J18.9 - Pneumonia, unspecified organism Code(s): J18.9 - Pneumonia, unspecified organism Status: Acute (2) Weakness: Code(s): R53.1 - Weakness Status: Acute (3) Dehydration: Code(s): E86.0 - Dehydration Status: Acute (4) Hyponatremia: Code(s): E87.1 - Hypo-osmolality and hyponatremia Status: Acute (5) Hypokalemia: Code(s): E87.6 - Hypokalemia Status: Acute DS: Summary Hospital Course Hospital Course: Patient is an 84 year old female that came to the ED via EMS with report of weakness. Patient is a resident of [facility]. Patient has history of dementia, alert and oriented x2. Patient found to be increasingly weak at facility. Patient can typically ambulate with walker, care for herself, and toilet herself. Family reported to the ER that patient had a cough, congestion, and URI symptoms for the past couple of days. Patient reports that appetite has been decreased. Patient denies falls. Patient denies chest pain, palpitations, headache, dizziness, nausea, or vomiting. Laboratory studies without leukocytosis. Stable H&H. Sodium slightly low at 130. Fluids ongoing. Stable kidney function. Otherwise stable electrolytes. Lactic acid within normal range at 1.7. Urine with 2+ ketones, no significant signs of infection. Small amount of blood. Viral swabs are negative. EKG with sinus tachycardia, no significant ST changes. Chest x-ray with possible left-sided pneumonia. CT brain was obtained and w/o acute findings. Blood cultures obtained. Patient started on Azithromycin 500 mg IVPB daily and Ceftriaxone 1 gram IVPB daily. MRSA negative. Blood cultures no growth. Transitioned to oral antibiotics. IV fluid, improved oral intake. Strength improved. Potassium supplemented. Discharged home on Azithromycin and Augmentin. Status at Discharge Functional status at discharge: uses cane/walker Overall status at discharge: patient is progressing back to baseline Time Spent with Patient Time attestation: Total time spent providing and/or coordinating discharge services: Time spent: Greater than 30 minutes Exam Const: General: comfortable and no acute distress Eyes: Sclera: sclerae normal Resp: Other: slightly diminished. Cardio: Rate: regular rate Rhythm: regular rhythm GI: GI Palp: Yes Soft to palpation Auscultation: normal bowel sounds Skin: General skin exam: no rashes or lesions noted Extrem: General: no pedal edema Psych: Mental Status: mental status grossly normal Affect: normal affect DS: Data Data Completed and Pending Labs on day of discharge: Labs from last 24 hours 10/15/24 05:14 WBC 6.6 RBC 4.84 Hgb 13.3 Hct 39.9 MCV 82.4 MCH 27.5 MCHC 33.3 RDW 13.5 Plt Count 206 MPV 9.8 Immature Gran % (Auto) 0.6 H Neut % (Auto) 74.9 H Lymph % (Auto) 11.4 L [place] % (Auto) 11.4 H Eos % (Auto) 1.4 Baso % (Auto) 0.3 Lymph # (Auto) 0.75 L [place] # (Auto) 0.8 H Eos # (Auto) 0.1 Baso # (Auto) 0.0 Abs Immat Gran (auto) 0.04 H Absolute Neuts (auto) 4.9 Absolute Nucleated RBC 0.000 Nucleated RBC % 0.0 Sodium 135 L Potassium 2.9 L Chloride 103 Carbon Dioxide 26 Anion Gap 6 BUN 8 Creatinine 0.43 L Estim Creat Clear Calc 68 Estimated GFR > 60 Glucose 103 Calcium 7.9 L Magnesium 1.9 Total Bilirubin 0.5 AST 35 ALT 28 Alkaline Phosphatase 67 Total Protein 6.0 L Albumin 3.1 L Discharge Plan Discharge Attending physician on discharge: Siddharth Vegas Discharging Clinician: Anni Jacques Anticipated Discharge Date/Time: 10/15/24 15:00 Patient Disposition: NH Retirement[facility]Asst Living Activity: may shower and as tolerated Diet: heart healthy Discharge Instructions: Take all doses of antibiotics. Drink water to hydrate. Report to provider if you develop fever, weakness, or difficulty breathing. Use walker when walking. Continue daily exercises. Thank you for entrusting [facility] with your healthcare! Patient Instructions: Antibiotic Form, Dehydration (DC), Pain Management (DC), Pneumonia (DC) Patient Language: [place] Stand Alone Forms: General Discharge Information Follow-up/Referrals: Dr. 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
[2024-10-18 18:34] LABS: Pneumococcal Antigen Urine DETECTED
--- OUTSIDE RECORDS SUMMARY | 2024-10-20 00:14 | XMS_ITS | Clinical Summary ---
Author Organization [facility] [employer] [facility] Address [address] [place] [address] Care Team Providers Care Gate Cutter Name Role Phone Jennifer Cordero MD Primary Care Provider [phone] Source Comments [facility] [employer] [facility],non-owned Affiliates and Associated Physician Practices is amultiple site organization consisting of ambulatory clinics and hospital sitesin [place], [place], [place] and [place]. This disclosure is being madepursuant to the Care Everywhere program and may not contain all information available regarding this patient. Last updated 18.[facility] [facility] Allergies Active Allergy Reactions Criticality Noted Date Comments Shellfish Allergy Urticaria Medium 03/03/2023 Medications * Be aware that medications may not be up to date on this document. Alwaysverify current medications with the patient. Medication Sig Dispensed Refills Start Date End Date Status ACETAMINOPHEN 8 HOUR PO Take 625 mg by mouth as needed Active calcium carbonate (TUMS) 750 MG chew tablet Take 1 (one) tablet by mouth once daily Active MULTIPLE VITAMINS-MINERALS PO Take by mouth once daily Active glucosamine 500 MG capsule Take 500 (five hundred) mg by mouth once daily Active Cholecalciferol (VITAMIN D-3 PO) Take 5,000 Units by mouth once daily Active melatonin 1 MG tablet Take 3 (three) tablets by mouth at bedtime Patient taking 6mg at night Active ketotifen (ZADITOR) 0.025 % ophthalmic solution 1 (one) drop every 12 hours Active Aspirin Low Dose 81 MG tablet Take 1 (one) tablet by mouth once daily 03/23/2024 Active donepezil (Aricept) 10 MG tablet Take 1 (one) tablet by mouth once daily 90 tablet 4 05/07/2024 Active memantine (Namenda) 10 MG tabletIndications: Cognitive Dysfunction Take 1 (one) tablet by mouth 2 times daily Reasons: Cognitive Dysfunction 180 tablet 1 05/07/2024 11/03/2024 Active sertraline (Zoloft) 50 MG tablet Take one each am 90 tablet 3 05/07/2024 Active lidocaine (HM Lidocaine Patch) 4 % patch Apply 1 (one) patch to skin once daily Apply patch to most painful area and remove after 12 hours. 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/2023 03/10/2023 DELISA (generalized anxiety disorder) 06/30/2023 White coat syndrome with hig h blood pressure but without hypertension 10/28/2022 Slow transit constipation 04/22/2022 Narrow angle glaucoma suspect of both eyes 06/18 Pseudophakia 06/18/2019 Osteopenia of multiple sites 05/10/2019 Vitamin D deficiency, unspecified 03/14/2019 12/08/2023 Presence of right artificial hip joint 9 12/08/2023 Primary osteoarthritis of right hip 01/19/2018 GERD (gastroesophageal reflux disease) 8 Closed fracture of distal en d of left radius with routine healing 11/28/2016 Anatomical narrow angle borderline glaucoma 01/07 Retinal dot hemorrhage 01/16/2014 Epiretinal membrane (ERM) of right eye 2 Overview (01/18/2019): Overview: O regulatory upload 07/25 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 11/04/2010 Resolved Problems Problem Noted Date Diagnosed Date Resolved Date MCI (mild cognitive impairment) 06/30/2023 03/29/2024 Encounter for general health examination 01/18/2019 01/18/2019 Nuclear age-related cataract, both eyes 07/31/2018 06/18/2019 Caregiver burden 01/19/2018 12/08/2023 Muscle strain of right thigh 06/02/2017 01/18/2019 Anxiety 05/20/2016 12/08/2023 Stress 05/20/2016 01/18/2019 Osteoarthrosis 05/06/2016 01/18/2019 Allergic conjunctivitis, acute, bilateral 01/22/2016 01/18/2019 Incipient senile cataract, bilateral 01/20/2015 06/18/2019 Health care maintenance 01/02/201501/07 Open angle with borderline findings, low risk 07/03/20 12 01/18/2019 Benign essential hypertension 11/04/2010 01/18/2019 Other and unspecified hyperlipidemia 11/04/2010 01/18/2019 Myalgia and myositis 09/10/2009 019 Routine general medical exam ination at a health care facility 05/13/2008 01/18/2019 Encounters Date Type Department Care Team Description 10/16/2024 Telephone [facility] - Centralized Scheduling [address] [place] [address] Jennifer Cordero MD 08/20/2024 Travel 07/31/2024 Telephone [facility] [address], [address] [place] [id number] Jennifer Cordero MD Pain Arm from Last 3 Months Immunizations Name Administration Dates Next Due INFLUENZA VACCINE, TRIV. (AF LURIA, FLUZONE TRIVALENT; 6MO+) (IIV3) 07/04/2014 Covid SoFi primary monoval ent 12+ yr 0.3mL Purple cap 12/21/2020,11/30/2020 HISTORIC, RSV UNSPECIFIED 09/08/2023 INFLUENZA VACCINE 06/22/2019 INFLUENZA VACCINE, ADJUVANTE D, QUADR. (FLUAD QUADRIVALENT; 65Y+) (AIIV4) 06/30/2023 INFLUENZA VACCINE, ADJUVANTE D, TRIV. (FLUAD TRIVALENT; 65Y+) (AIIV3) 06/22/2019 INFLUENZA VACCINE, HIGH-DOSE , QUADR. (FLUZONE HIGH-DOSE QUADRIVALENT; 65Y+), 0.7 ML (HD-IIV4) 10/28/2022,07/04/2022,07/31/2021,2019,07/20/2018,09/22/2017,07/10/2017,0 07/04/2016,06/26/2015 INFLUENZA VACCINE, HIGH-DOSE , TRIV. (FLUZONE HIGH-DOSE TRIVALENT; 65Y+) (HD-IIV3) 07/20/2018,09/22/2017 PNEUMOCOCCAL PPSV23 07/20/2018 Pneumococcal Pcv13 Conj 07/10/2017,05/12/2017 ZOSTER VACCINE, LIVE 07/10/2015,01/02/2015 Family History Medical History Relation Name Comments Glaucoma Neg Hx Social History Tobacco Use Types Packs/Day Years Used Date Smoking Tobacco: Never Smokeless Tobacco: Never Tobacco Cessation:Counseling Given: Not Answered Alcohol Use Standard Drinks/Week Comments No 0 (1 standard drink = 0.6 oz pur e alcohol) PHQ-2 Answer Date Recorded Patient Health Questionnaire-2 Score 0 08/20/2024 Sex and Gender Information Value Date Recorded Sex Assigned at Not on file Gender Identity Not on file Sexual Orientation Not on file Last Filed Vital Signs Vital Sign Reading Time Taken Comments Blood Pressure 132/84 08/20/2024 2:42 PM ENGINE ASSEMBLER Pulse 84 08/20/2024 2:42 PM ENGINE ASSEMBLER Temperature 36.9 ??C (98.5 ??F) 04/19/2024 11:09 AM C DT Respiratory Rate 20 12/08/2023 11:26 AM ENGINE ASSEMBLER Oxygen Saturation 96% 04/19/2024 11:09 AM CDT Inhaled Oxygen Concentration - - Weight 59.9 kg (132 lb) 03/29/2024 8:39 AM CDT Height 154.9 cm (5' 1 ) 02/13/2024 1:49 PM CDT Body Mass Index 24.94 02/13/2024 1:49 PM CDT Plan of Treatment Health Maintenance Due Date Last Done Comments MEDICARE AWV ? 12 MONTHS 1940 DTAP/TDAP/TD VACCINES (1 - Tdap) 1961 ZOSTER VACCINE (2 of 3) 09/04/2015 07/10/2015, 01/02 COVID-19 VACCINE (7 - season) 2024 07/26/2023, 06/27/2022, 01/09/2022, Additional history exists INFLUENZA VACCINE (#1) 2024 , 10/28/2022, 07/04/2022, Additional history exists DEPRESSION SCREENING 10/09/2024 01/10/2024, 10/28/2022, 04/22/2022 PNEUMOCOCCAL VACCINE 50+ Completed 018, 07/10/2017, 05/12/2017 BONE DENSITY TESTING Completed 07/28/2023, 05/21/2021, 05/23/2019, Additional history exists Respiratory Syncytial Virus (RSV) Vaccine Pt: or over 60 yrs Completed 09/08/2023 HEPATITIS B VACCINE Aged Out No longe r eligible based on patient's age to complete this topic HIB VACCINE Aged Out No longer eligi ble based on patient's age to complete this topic HPV VACCINE Aged Out No longer eligi ble based on patient's age to complete this topic MENINGOCOCCAL (Group B) VACCINE Aged Out No longer eligible based on patient's age to complete this topic MENINGOCOCCAL VACCINE Aged Out No ermias jeff eligible based on patient's age to complete this topic Medical Devices Implanted Type Area Claims Director Device Identifier Shelf Expiration Date Model / Serial / Lot Lens Iol +23.5 Ronan Hpt C Bcnvx Tecnis - [id number] Implanted:Qty: 1 on 09/19/2018 by Kaleigh Harris MD at [facility] Left: Eye [employer] 07/12/2021 [id number] / [id number] / Lens Iol +23 Ronan Mod C Bcnvx Tecnis - [id number] Implanted:Qty: 1 on 11/14/2018 by Kaleigh Harris MD at [facility] Right: Eye [employer] 07/24/2021 [id number] / [id number] / Procedures Procedure Name Priority Date/Time Associated Diagnosis Comments DEXA BONE DENSITY AXIAL SKELETON Routine 07/28/2023 11:17 AM CDT Osteopenia of multiple sites from Last 3 Months or Most Recently Relevant to Health Maintenance Results * BONE DENSITY AXIAL SKELETON(1OR MORE SITES)[id number] (07/28/2023 11:17 AM CDT) Anatomical Region Laterality Modality Other 07/31/2023 2:07 PM CDT Narrative 07/31/2023 3:25 PM CDT PROCEDURE: ??DEXA BONE DENSITY AXIAL SKELETON, DATE/TIME OF EXAM: 07/28/2023 11:18 AM, LOCATION ??[facility] INDICATION: M85.89: Osteopenia of multiple sites COMPARISON: No prior DEXA study. LEFT ??FEMORAL NECK: ?? Bone mineral density (g/cm2): ??0.766 Current T-score: -0.8 ? LUMBAR SPINE (L1-L4): Bone mineral density (g/cm2): ??1.189 Current T-score: 1.3 ? BONE DENSITY ASSESSMENT: WHO Category: ??Normal FRAX CALCULATION: FRAX not reported because: All T-scores for spine total, hip total, femoral neck at or above -1. Please see the PACS images for additional details. World Health Organization definitions of standard deviations relative to the mean T-score: Normal bone density = -1.0 and above Osteopenia = between -1.0 and -2.5 Osteoporosis = -2.5 and below > Dictated by Rayna Enamorado MD (Advertising Associate) 07/31/2023 2:07 PM Landen Cuba DO have personally reviewed and interpreted this examination/study. > Interpreting Provider: Landen Nelson DO on 07/31/2023 3:25 PM Procedure Note Landen Nelson DO - 10/31/2023 PROCEDURE: DEXA BONE DENSITY AXIAL SKELETON, DATE/TIME OF EXAM: 07/28/2023 11:18 AM, LOCATION [facility] INDICATION: M85.89: Osteopenia of multiple sites COMPARISON: No prior DEXA study. LEFT FEMORAL NECK: Bone mineral density (g/cm2): 0.766 Current T-score: -0.8 LUMBAR SPINE (L1-L4): Bone mineral density (g/cm2): 1.189 Current T-score: 1.3 BONE DENSITY ASSESSMENT: WHO Category: Normal FRAX CALCULATION: FRAX not reported because: All T-scores for spine total, hip total,femoral neck at or above -1. Please see the PACS images for additional details. World Health Organization definitions of standard deviations relative to the mean T-score: Normal bone density = -1.0 and above Osteopenia = between -1.0 and -2.5 Osteoporosis = -2.5 and below > Dictated by Rayna Enamorado MD (Advertising Associate) 07/31/2023 2:07 PM ILanden DO have personally reviewed and interpreted this examination/study. > Interpreting Provider: Landen Nelson DO on 07/31/2023 3:25 PM Jennifer Cordero MD DEXA ORDERABLES from Last 3 Months or Most Recently Relevant to Health Maintenance Advance Directives * Full Code (Latest Code Status on File) Date Activated Date Inactivated Comments 09/18/2018 4:02 PM 09/19/2018 11:44 AM Care Teams Gate Cutter Relationship Specialty Start Date End Date Jennifer oCrdero MD [address] [place] [phone] [facility] - General 01/16/18
--- NOTE | 2024-10-21 13:03 | PC.NURSE ---
Blood cx are negative.
== END 2024-10-15 16:56 | DRG 194 ==
LOC: ANHED 10-13 00:20 → ANH2MED 10-13 01:59
PROVIDERS: Emergency Medicine; Admitting Provider Internal Medicine; Emergency Provider Physician Assistant; Visit Provider Nurse Practitioner Family
DX: J18.9 Pneumonia, unspecified organism (principal); E87.1 Hypo-osmolality and hyponatremia; E86.0 Dehydration; E87.6 Hypokalemia; F03.90 Unspecified dementia, unspecified severity, without behavioral disturbance, psychotic disturbance, mood disturbance, and anxiety
CPT/HCPCS: 36415; 70450; 71046; 80053; 81001; 83605; 83735; 85025; 87040; 87449; 87637; 87641; 87899; 93005; 96361; 96365; 96366; 96367; 97110; 97161; 97165; 97530; 99285; A9270; G0378; J0456; J0696; J3475; J7030

== ENCOUNTER 2025-01-24 17:32 | Emergency (ER) | payer MEDICARE, OTHER, SELFPAY ==
--- NOTE | ~2025-01-24 | CT_ITS ---
CT cervical spine wo con Ordering provider: Kayden Saldana MD History: . neck pain . Comparison: None. Technique: CT of the cervical spine was performed without contrast. Sagittal and coronal reformatted images were also obtained and reviewed. Automated exposure control and iterative reconstruction josiah hnique were employed. The dose-length product was 422.94 mGy-cm. FINDINGS: VERTEBRAE: No subluxation or acute fracture. The occipital condyles are intact. DISC SPACES: Narrowing of the disc C5-C6, C6-C7, C7-T1 and T1-2.. Multilevel facet joint disease. Mul tilevel uncovertebral joint osteoarthritic changes. Narrowing of the right foramen at the level of C2 -C3 and C4-C5. Bilateral narrowing of the level of C3-C4. Narrowing of the left foramina at the level of C5-C6 and C6-C7. PARASPINOUS SOFT TISSUES: Normal. IMPRESSION: No acute osseous abnormality cervical spine. Multilevel degenerative disc disease. Reviewed, dictated and finalized at location A.
--- OUTSIDE RECORDS SUMMARY | 2025-01-24 17:35 | XMS_ITS | Continuity of Care Document ---
Author Organization [facility] Address [address] [place] [address] Phone Care Team Providers Care Advertising Account Executive Name Role Phone Susan Lopez Unavailable Unavailable Procedures Procedure Date Eye Exam & Treatment SV Poly Carb Sph Morgan To +/- 4 009 Frames Deluxe [facility] SV Poly Carb Sph +/- 7.12 To +/- 20 D Ma [facility] Eye Exam & Treatment Office/outpatient Visit, Est Eye Exam Established Pt Advance Directives Directive Yes / No Effective Date File Name No Information Encounters Encounter Description Practice Location Reason(s) For Visit Diagnoses Date Provider Providers Copied on Encounter [facility], [id number] [place] [address] [address], [place], [place], [id number], [place] tel:[phone] [facility] [place] [facility] No Information 2-201 0 Jessica Davis. [address] [place] , [address], [place], [address], [place]. tel:[phone] [facility], [address] [place] [address] [address], [place], [place], [id number], [place] tel:[phone] [facility] No Information 1-200 9 [facility] . [address] [facility], [address], [place], [place], [id number], [place]. tel:[phone] Referring Provider: Susan Alva, [address], [place], [address]. tel:[phone] ana Provider: Cornel Monroe [address] [place], [place] [address]ate Ctr, [place], [address]. tel:[phone] [facility], [address] [place] [address] [address], [place], [place], [id number], [place] tel:[phone] [facility] [place] No Information February-2 1-200 9 [facility] . [address] [facility], [address], [place], [place], [id number], [place]. tel:[phone] Referring Provider: Susan Alva, [address] [place], [place] [address]ate [place] [address], [place], [place], [facility]. tel:[phone] perez Provider: Cornel Monroe, [address] [place], [place] [address]ate [facility], [place], [address]. tel:[phone] [facility], [address] [place] [address] [address], [place], [place], [id number], [place] tel:[phone] [facility] [place] No Information Apr-0 9-200 9 Jessica Davis. [facility] [place] , [address], [place], [place], [facility], [place]. tel:[phone] Office/outpat ient Visit, [facility], [address] [place] [address] [address], [place], [place], [id number], [place] tel:[phone] [facility] [place] No Information Apr-1 0-200 8 Jessica Wren [address], [place], [address], [place]. tel:[phone] [facility], [address] [place] [address] [address], [place], [place], [id number], [place] tel:[phone] [facility] [place] No Information Oct-0 4-200 7 Jessica Perez [facility] , [address], [place], [address], [place]. tel:[phone] Family History Family Member Type Diagnosis Age At Onset No Information Payers Payer name Insurance type Covered democrat ID Daya medina(s) [facility] Commercial CI [id number] Social History Type Description Quantity Date Captured Comments Sex Female Smoking Status No Information Chief Complaint And Reason For Visit No Information Reason For Referral Reason For Referral No Information History Of Present Illness Encounter Date Complaint History Of Prese nt Illness No Information Functional Status Date Functional Assessmen t No Information Instructions Date Instruction Additional Infor mation No Information Assessments Type Assessment Date No Information Patient Care Teams Name Effective Dates (start - stop) Status Members No Information
--- OUTSIDE RECORDS SUMMARY | 2025-01-24 17:35 | XMS_ITS | Encounter Summary ---
Author Organization [facility] Address [address] [facility] [place] [address] Care Team Providers Care Sharepoint Administrator Name Role Phone Jennifer Cordero MD Primary Care Provider [phone] Reason for Visit * Reason Onset Date Comments Referral Request 12/27/2023 Encounter Details Date Type Department Care Team (Late st Contact Info) Description 12/27/2023 Telephone [facility] [address] [place] [address] Jennifer Cordero MD [address] [address] Referral Request Social History Tobacco Use Types Packs/Day Years Used Date Smoking Tobacco: Never Smokeless Tobacco: Never Alcohol Use Standard Drinks/Week Comments No 0 (1 standard drink = 0.6 oz pur e alcohol) PHQ-2 Answer Date Recorded Patient Health Questionnaire-2 Score 0 06/30/2023 Comments No Sex and Gender Information Value Date Recorded Sex Assigned at Not on file Legal Sex Female 9:22 AM CDT Gender Identity Not on file Sexual Orientation Not on file documented as of this encounter Functional Status * Is person deaf or have serious hearing difficulty? Answer Date of Assessment Author No 11/14/2018 11:45 AM Cammie Oro RN * Is person blind or have serious difficulty seeing? Answer Date of Assessment Author Yes 11/14/2018 11:45 AM Cammie Oro RN * Does person have serious difficulty walking/climbing stairs? Answer Date of Assessment Author No 11/14/2018 11:45 AM Cammie Oro RN * Does person have difficulty dressing/bathing? Answer Date of Assessment Author No 11/14/2018 11:45 AM Cammie Oro RN * Does person have difficulty doing errands alone? Answer Date of Assessment Author No 11/14/2018 11:45 AM Cammie Oro RN documented as of this encounter Mental Status * Does person have difficulty concentrating/remembering/making decisions? Answer Entry Date Author No 11/14/2018 11:45 AM Cammie Oro RN documented in this encounter Miscellaneous Notes * Telephone Encounter - Tatiana Ramos - 12/27/2023 12:11 PM CDT Current Provider name:ALEJANDRA Reason for call: Patient's daughter Deepthi called into the scheduling line requesting to know if [facility] (See 12/22/23 clinic note) as they have yet to receive the fax from us. Daughter provided the fax numbers below. [facility] Electronic fax [phone] Physical fax [phone] Patient Call Back number: [phone] documented in this encounter Plan of Treatment Not on file documented as of this encounter Visit Diagnoses Not on filedocumented in this encounter Care Teams Sharepoint Administrator Relationship Specialty Start Date End Date Jennifer Cordero MD [address] [address] PCP - General 01/16/18 documented as of this encounter
--- OUTSIDE RECORDS SUMMARY | 2025-01-24 17:35 | XMS_ITS | Encounter Summary ---
Author Organization [facility] Address [address] [facility] [place] [address] Care Team Providers Care Chicken Tender Name Role Phone Jennifer Cordero MD Primary Care Provider [phone] Reason for Visit * Reason Onset Date Comments MEDICATION REFILL 05/04/2024 Encounter Details Date Type Department Care Team (Late st Contact Info) Description 05/04/2024 Refill [facility] [address] [place] [id number] Jennifer Cordero MD [address] [address] MEDICATION REFILL Social History Tobacco Use Types Packs/Day Years Used Date Smoking Tobacco: Never Smokeless Tobacco: Never Alcohol Use Standard Drinks/Week Comments No 0 (1 standard drink = 0.6 oz pur e alcohol) PHQ-2 Answer Date Recorded Patient Health Questionnaire-2 Score 2 04/17/2024 Comments No Sex and Gender Information Value [...] Cammie Oro RN documented in this encounter Plan of Treatment Not on file documented as of this encounter Visit Diagnoses Not on filedocumented in this encounter Care Teams Chicken Tender Relationship Specialty Start Date End Date Jennifer Cordero MD [address] [address] PCP - General 01/16/18 documented as of this encounter
--- OUTSIDE RECORDS SUMMARY | 2025-01-24 17:35 | XMS_ITS | Encounter Summary ---
Author Organization [facility] Address [address] [place] [address] Care Team Providers Care Structural Shop Helper Name Role Phone Jennifer Cordero MD Primary Care Provider [phone] Encounter Details Date Type Department Care Team (Late st Contact Info) Description 10/16/2024 Telephone [facility]uling [address] [place] [address] Jennifer Cordero MD [address] [id number] Social History Tobacco Use Types Packs/Day Years Used Date Smoking Tobacco: Never Smokeless Tobacco: Never Alcohol Use Standard Drinks/Week Comments No 0 (1 standard drink = 0.6 oz pur e alcohol) PHQ-2 Answer Date Recorded Patient Health Questionnaire-2 Score 0 08/20/2024 Comments No Sex and Gender Information Value [...] on filedocumented in this encounter Care Teams Structural Shop Helper Relationship Specialty Start Date End Date Jennifer Cordero MD [address] [address] PCP - General 01/16/18 documented as of this encounter
--- OUTSIDE RECORDS SUMMARY | 2025-01-24 17:35 | XMS_ITS ---
Author Name Roman Sheridan Address [address] [place] [address] Phone [phone] [facility] Address [address] [place] [address] Phone [phone] Care Team Providers Care Station Master Name Role Phone Roman Sheridan Unavailable Nuvia Grimes Unavailable Jazmin Crandall Unavailable Functional Status No Results Mental Status No Results Allergies and Intolerances Name Onset Date Reaction Severity ibuprofen (Allergy) MonMar 14 19:48:00 EDT 2019 Medications Medication Directions Start Date End Date Vitamin D3 5,000 unit tablet 5000 unit TABLET Oral 1 Time Daily dx supplement MonMar 22 09:00:00 EDT 2018Mar 29 01:00:00 EDT 2019 TUBErsol 5 tub. unit/0.1 mL intradermal injection solution Read Results VIAL (ML) Other 1 Time Weekly for 2 Weeks Read results between 48-72 hours after 1st and 2nd 1 week apart. If positive do chest x-ray to rule out active disease. MonMar 18 13:00:00 EDT 2018Mar 15 13:09:00 EDT 2019 TUBErsol 5 tub. unit/0.1 mL intradermal injection solution 0.1 ml VIAL (ML) Intradermal 1 Time Weekly for 2 Weeks (PPD) 1st injection upon admission. Read between 48 and 72 hours and give 2nd injection 1 week after the 1st if result is negative. If positive result, proceed with chest x-ray to rule out active disease. MonMar 15 13:00:00 EDT 2018Mar 15 13:09:00 EDT 2019 Colace 100 mg capsule 1 cap CAPSULE Oral PRN 1 Time Daily constipation MonMar 15 13:00:00 EDT 2018Mar 29 01:00:00 EDT 2019 senna 8.6 mg tablet 2 tabs TABLET Oral P RN 1 Time Daily constipation MonMar 15 13:00:00 EDT 2018Mar 29 01:00:00 EDT 2018 ketotifen 0.025 % (0.035 %) eye drops 1 gtt DROPS Both Eyes PRN 2 Times Daily dry eyes MonMar 15 13:00:00 ED2018Mar 29:00:00 EDT 2018 Artificial Tears (glycerin-peg) 1 %-0.3 % eye drops 1 gtt DROPS Both Eyes PRN 4 Times Daily dry eyes MonMar 15 13:00:00 EDT 2018Mar 29:00:00 EDT 2018 acetaminophen 325 mg tablet 650 mg TABLE T Oral PRN Every 6 Hours pain MonMar 14 19:00:00 EDT 2018Mar 29 01:00:00 EDT 2018 aspirin 81 mg chewable tablet 81 mg TABLET,CHEWABLE Oral 2 Times Daily for 42 Days prevention DVT MonMar 14 09:00:00 EDT 2018Mar 29 01:00:00 EDT 2018 calcium carbonate 500 mg calcium (1,250 mg) chewable tablet 1 tab TABLET,CHEWABLE Oral 1 Time Daily supplement MonMar 15 09:00:00 ED2018Mar 29 01:00:00 EDT 2019 docosahexanoic acid 100 mg capsule 100 mg CAPSULE Oral 1 Time Daily supplement MonMar 14 09:00:00 EDT 2018Mar 15 15:55:00 EDT 2019 famotidine 20 mg tablet 20 m TABLET Oral PRN 2 Times Daily heartburn MonMar 14 19:00:00 ED2018Mar 29 01:00:00 EDT 2019 Glucosamine 500 mg tablet 500 mg TABLET Oral 1 Time Daily supplement MonMar 15 09:00:00 EDT 2018Mar 15 15:55:00 EDT 2019 HYDROcodone 5 mg-acetaminophen 325 mg tablet 5-325 mg 1 tab TABLET Oral PRN Every 4 Hours pain MonMar 14 19:00:00 ED2018Mar 29 01:00:00 EDT 2019 HYDROcodone 5 mg-acetaminophen 325 mg tablet 2 abs TABLET Oral PRN Every 4 Hours pain MonMar 14 19:00:00 ED2018Mar 29 01:00:00 EDT 2019 ketotifen 0.025 % (0.035 %) eye drops 1 gtt DROPS Both Eyes PRN dry eyes MonMar 14 19:00:00 EDT 2018Mar 15 16:03:00 EDT 2018 Artificial Tears (glycerin-peg) 1 %-0.3 % eye drops 1 gtt DROPS Both Eyes PRN dry eyes MonMar 14 19:00:00 EDT 2018Mar 15 16:03:00 EDT 2018 multivitamin tablet 1 tab TABLET Oral 1 Time Daily supplement MonMar 15 09:00:00 EDT 2018Mar 29 01:00:00 EDT 2018 Milk of Magnesia 400 mg/5 mL oral suspension 30mL SUSPENSION, ORAL (FINAL DOSE FORM) Oral PRN 1 Time Daily Constipation MonMar 14 20:00:00 EDT 2018Mar 29 01:00:00 EDT 2018 Problems Active Concerns * Aftercare following joint replacement surgery* Code: * Start Date: MonMar 14 00:00:00 EDT 2018 * End Date: * Text: * Presence of right artificial hip joint* Code: * Start Date: MonMar 14 00:00:00 EDT 2018 * End Date: * Text: * Other specified congenital deformities of hip* Code: * Start Date: MonMar 14 00:00:00 EDT 2019 * End Date: * Text: * Bilateral primary osteoarthritis of hip* Code: * Start Date: MonMar 14 00:00:00 EDT 2018 * End Date: * Text: * Gastro-esophageal reflux disease without esophagitis* Code: * Start Date: MonMar 14 00:00:00 EDT 2019 * End Date: * Text: * Nocturia* Code: * Start Date: MonMar 14 00:00:00 EDT 2019 * End Date: * Text: * Constipation, unspecified* Code: * Start Date: MonMar 14 00:00:00 EDT 2019 * End Date: * Text: * Elevated blood-pressure reading, without diagnosis of hypertension* Code: * Start Date: MonMar 14 00:00:00 EDT 2019 * End Date: * Text: * Dry eye syndrome of unspecified lacrimal gland* Code: * Start Date: MonMar 14 00:00:00 EDT 2019 * End Date: * Text: * Hypocalcemia* Code: * Start Date: MonMar 14 00:00:00 EDT 2019 * End Date: * Text: * Vitamin D deficiency, unspecified* Code: * Start Date: MonMar 14 00:00:00 EDT 2018 * End Date: * Text: Reason for Referral Past Medical History
--- OUTSIDE RECORDS SUMMARY | 2025-01-24 17:35 | XMS_ITS | Encounter Summary ---
Author Organization [facility] Address [address] [facility] [place] [address] Care Team Providers Care Brick Sorter Name Role Phone Jennifer Cordero MD Primary Care Provider [phone] Encounter Details Date Type Department Care Team (Late st Contact Info) Description 09/26/2018 Telephone [facility] [address] [place] [address] Kaleigh Harris MD No information available Social History Tobacco Use Types Packs/Day Years Used Date Smoking Tobacco: Never Smokeless Tobacco: Never Alcohol Use Standard Drinks/Week Comments No 0 (1 standard drink = 0.6 oz pur e alcohol) Comments No Sex and Gender Information Value Date Recorded Sex Assigned at Not on file Legal Sex Female 9:22 AM CDT Gender Identity Not on file Sexual Orientation Not on file documented as of this encounter Functional Status * Is person deaf or have serious hearing difficulty? Answer Date of Assessment Author No 09/19/2018 10:38 AM Rebeca Decker RN * Is person blind or have serious difficulty seeing? Answer Date of Assessment Author No 09/19/2018 10:38 AM Rebeca Decker RN * Does person have serious difficulty walking/climbing stairs? Answer Date of Assessment Author No 09/19/2018 10:38 AM Rebeca Decker, EMILY * Does person have difficulty dressing/bathing? Answer Date of Assessment Author No 09/19/2018 10:38 AM Rebeca Decker RN * Does person have difficulty doing errands alone? Answer Date of Assessment Author No 09/19/2018 10:38 AM Rebeca Decker RN documented as of this encounter Mental Status * Does person have difficulty concentrating/remembering/making decisions? Answer Entry Date Author No 09/19/2018 10:38 AM Rebeca Decker RN documented in this encounter Plan of Treatment Not on file documented as of this encounter Visit Diagnoses Not on filedocumented in this encounter Care Teams Brick Sorter Relationship Specialty Start Date End Date Jennifer Cordero MD [address] [address] PCP - General 01/16/18 documented as of this encounter
--- OUTSIDE RECORDS SUMMARY | 2025-01-24 17:36 | XMS_ITS | Clinical Summary ---
Author Organization [facility] Address [address] [place] [address] Care Team Providers Care Teacher Education Director Name Role Phone Jennifer Cordero MD Primary Care Provider [phone] Source Comments [facility],non-owned Affiliates and Associated Physician Practices is amultiple site organization consisting of ambulatory clinics and hospital sitesin [place], [place], [place] and [place]. This disclosure is being madepursuant to the Care Everywhere program and may not contain all information available regarding this patient. Last updated 18.[facility] Allergies Active Allergy Reactions Criticality Noted Date Comments Shellfish Allergy Urticaria Medium 03/03/2023 Medications * This document contains information received from the source organization and may not represent a complete record from that organization. * Be aware that medications may not be up to date on this document. Alwaysverify current medications with the patient. ACETAMINOPHEN 8 HOUR PO Take 625 mg by mouth as needed Active calcium carbonate (TUMS) 750 MG chew tablet Take 1 (one) tablet by mouth once daily Active MULTIPLE VITAMINS-MINERAL S PO Take by mouth once daily Active [...] 1 (one) tablet by mouth once daily 4 Active donepezil (Aricept) 10 MG tablet Take 1 (one) tablet by mouth once daily 90 tablet 4 4 Active memantine (Namenda) 10 MG tabletIndication s:Cognitive Dysfunction Take 1 (one) tablet by mouth 2 times daily Reasons: Cognitive Dysfunction 180 tablet 1 4 Active sertraline (Zoloft) 50 MG tablet Take one each am 90 tablet 3 4 Active lidocaine (HM Lidocaine Patch) 4 % patch Apply 1 (one) patch to skin once daily Apply patch to most painful area and remove after 12 hours. 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 (AF LURIA, FLUZONE TRIVALENT; 6MO+) (IIV3) 07/04/2014 Covid [employer] primary monoval ent 12+ yr 0.3mL Purple [...] Comments Blood Pressure 132/84 08/20/2024 2:42 PM MRI MANAGER Pulse 84 08/20/2024 2:42 PM MRI MANAGER Temperature 36.9 C (98.5 F) 04/19/2024 11:09 AM CDT Respiratory Rate 20 12/08/2023 11:26 AM MRI MANAGER Oxygen Saturation 96% 04/19/2024 11:09 AM CDT Inhaled Oxygen Concentration - - Weight 59.9 kg (132 lb) 03/29/2024 8:39 AM CDT Height 154.9 cm (5' 1 ) 02/13/2024 1:49 PM CDT Body Mass Index 24.94 02/13/2024 1:49 PM CDT Plan of Treatment Health Maintenance Due Date Last Done Comments MEDICARE AWV 12 MONTHS 1942 DTAP/TDAP/TD VACCINES (1 - Tdap) 1961 ZOSTER VACCINE (2 of 3) 09/04/2015 07/10/2015, 01/02 COVID-19 VACCINE ( season) 2024 07/26/2023, 06/27/2022, 01/09/2022, Additional history exists DEPRESSION SCREENING 10/09/2024 01/10/2024, 10/28/2022, 04/22/2022 INFLUENZA VACCINE (Season Ended) 2025 06/30/2023, 10/28/2022, 07/04/2022, Additional history exists PNEUMOCOCCAL VACCINE 50+ Completed 018, 07/10/2017, 05/12/2017 [...] complete this topic MENINGOCOCCAL (Group B) VACCINE SHARED DECISION-MAKING Aged Out No longer eligible based on patient's age to complete this topic MENINGOCOCCAL GROUPS A/C/Y/W VACCINE Aged Out No longer eligible based on patient's age to complete this topic Medical Devices Implanted Type Area Maxillofacial Surgeon Device Identifier Shelf Expiration Date Model / Serial / Lot Lens Iol +23.5 Ronan Hpt C Bcnvx Tecnis - [id number] Implanted:Qty: 1 on 09/19/2018 by Kaleigh Harris MD at [facility] Left: Eye [employer] 07/12/2021 [id number] / [id number] / Lens Iol +23 Ronan Mod C Bcnvx Tecnis - [id number] Implanted:Qty: 1 on 11/14/2018 by Kaleigh Harris MD at [facility] Right: Eye [employer] 07/24/2021 [id number] / [id number] / Procedures Procedure Name Priority Date/Time Associated Diagnosis Comments DEXA BONE DENSITY AXIAL SKELETON Routine 07/28/2023 11:17 AM CDT Osteopenia of multiple sites from Last 3 Months or Most Recently Relevant to Health Maintenance Results * BONE DENSITY AXIAL SKELETON(1OR MORE SITES)[id number] (07/28/2023 11:17 AM CDT) Anatomical Region Laterality Modality Other 07/31/2023 2:07 PM CDT Narrative 07/31/2023 3:25 PM CDT PROCEDURE: DEXA BONE DENSITY AXIAL SKELETON, DATE/TIME OF EXAM: 07/28/2023 11:18 AM, LOCATION [facility] INDICATION: M85.89: Osteopenia of multiple sites COMPARISON: [...] below > Dictated by Rayna Enamorado MD (Odd Bundle Worker) 07/31/2023 2:07 PM ILanden DO have personally reviewed and interpreted this examination/study. > Interpreting Provider: Landen Nelson DO on 07/31/2023 3:25 PM Procedure Note Landen Nelson DO - 10/31/2023 PROCEDURE: DEXA BONE DENSITY AXIAL SKELETON, DATE/TIME OF EXAM: 07/28/2023 11:18 AM, LOCATION [facility] INDICATION: M85.89: Osteopenia of multiple sites COMPARISON: [...] below > Dictated by Rayna Enamorado MD (Odd Bundle Worker) 07/31/2023 2:07 PM I, Landen Nelson DO have personally reviewed and interpreted this examination/study. > Interpreting Provider: Landen Nelson DO on 07/31/2023 3:25 PM us Jennifer Cordero MD DEXA ORDERABLES Edited Resul t - Final from Last 3 Months or Most Recently Relevant to Health Maintenance Insurance MEDICARE [facility] [id number] [address] [id number] MEDICARE [facility] [address] [address] MEDICARE [facility] [place] [address] MEDICARE [facility] [address] [id number] Advance Directives Documents on File Type Date Recorded Patient Travel Service Consultant Expl anation POLST 12/27/2024 10:47 AM Signed PO LST * Full Code (Latest Code Status on File) Date Activated Date Inactivated Comments 09/18/2018 4:02 PM 09/19/2018 11:44 AM Care Teams Teacher Education Director Relationship Specialty Start Date End Date Jennifer Cordero MD [address] [facility] [address] [place] [address] PCP - General 01/16/18
--- OUTSIDE RECORDS SUMMARY | 2025-01-24 17:36 | XMS_ITS | Clinical Summary ---
Author Organization [facility] Physician Office Building [id number] [place] [address] Care Team Providers Care Property Worker Name Role Phone Jennifer Cordero MD Primary Care Provider + Kyle Bryant ETCH OPERATOR SEMICONDUCTOR WAFERS Unavailable [phone] Saravanan Curry ETCH OPERATOR SEMICONDUCTOR WAFERS Unavailable [phone] Allergies Active Allergy Reactions Criticality Noted Date Comments Ibuprofen Itching Low 06/26/2015 Shrimp Itching Low 04/03/2019 Medications calcium carbonate (TUMS) 500 mg calcium (200 mg of elemental calcium) chewable tablet Take 1 tablet by mouth daily. Active docosahexanoic acid 100 mg capsule Take 1 tablet by mouth daily Active ketotifen (ZADITOR) 0.025 % ophthalmic solution Administer 1 drop into both eyes as needed Active famotidine (PEPCID) 20 mg tablet Take 20 mg by mouth 2 (two) times a day as needed for heartburn Active glucosamine sulfate 500 mg tablet Take 1 tablet by mouth daily Active mv-mn/folic acid/calcium/vit K (WOMEN'S 50 PLUS MULTIVITAMIN ORAL) Take 1 tablet by mouth daily Active propylene glycol-glycerin 1-0.3 % drops Administer 1 drop into affected eye(s) as needed Active cholecalciferol (VITAMIN D-3) 2,000 unit tablet Take 1 tablet (2,000 Units total) by mouth daily 30 tablet 9 Active hypromellose (NATURES TEARS) drops Administer into affected eye(s) Active OMEGA-3 FATTY ACIDS-FISH OIL ORAL Take 1,000 mg by mouth Active naproxen sodium 220 mg capsule Take by mouth A ctive amoxicillin 500 mg capsule TK 4 CS PO 1 HOUR B VISIT 0 Active melatonin tablet Take 1 mg by mouth nightly Active donepeziL (ARICEPT) 5 mg tablet Take 1 tablet (5 mg total) by mouth daily 3 Active Active Problems Problem Noted Date Diagnosed Date Primary osteoarthritis of hips, bilateral 2022 Spondylosis of lumbar spine 08/08/2023 Degenerative scoliosis in adult patient 08/08/20 23 DELISA (generalized anxiety disorder) 06/30/2023 MCI (mild cognitive impairment) 06/30/2023 White coat syndrome with hig h blood pressure but without hypertension 10/28/2022 Primary osteoarthritis of left hip 08/06/2021 Hip pointer, initial encounter 08/23/2019 Pseudophakia 06/18/2019 Osteopenia of multiple sites 05/10/2019 Constipation 03/14/2019 Dry eye syndrome of unspecified lacrimal gland 0 03/14/2019 Elevated blood pressure read ing without diagnosis of hypertension 03/14/2019 Hypocalcemia 03/14/2019 Vitamin D deficiency, unspecified 03/14/2019 Nocturia 03/14/2019 Presence of right artificial hip joint 9 GERD (gastroesophageal reflux disease) 9 Aftercare following right knee joint replacement surgery 03/11/2019 Osteoarthritis resulting from right hip dysplasi a 03/03/2019 Caregiver burden 01/19/2018 Closed fracture of distal en d of left radius with routine healing 11/28/2016 Anxiety 05/20/2016 Anatomical narrow angle borderline glaucoma 01/07 Retinal dot hemorrhage 01/16/2014 Epiretinal membrane (ERM) of right eye 2 Overview (12/11/2019): IMO regulatory upload 07/25 Benign hypertension 11/04/2010 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 11/04/2010 Insomnia 11/04/2010 Other and unspecified hyperlipidemia 11/04/2010 Myalgia and myositis 09/10/2009 Surgical History Surgery Date Site/Laterality Comments TUBAL LIGATION FLUORO GUIDED INJECTION HIP RIGHT 09/11/2018 Right JOINT REPLACEMENT 03/11/2019 Right Right toal hip HIP SURGERY 03/11/2019 Right Medical History Medical History Date Comments Arthritis Osteoarthritis of both hips Congenital dysplasia of right hip GERD (gastroesophageal reflux disease) Nocturia Family History Medical History Relation Name Comments No Known Problems Father age97 No Known Problems Mother age 102 Relation Name Status Comments Brother Alive Father age97 Mother age 102 Social History Tobacco Use Types Packs/Day Years Used Date Smoking Tobacco: Never Smokeless Tobacco: Never Tobacco Cessation:Counseling Given: No Alcohol Use Standard Drinks/Week Comments Never 0 (1 standard drink = 0.6 oz pur e alcohol) Social Connection and Isolat ion Panel [NHANES] Answer Date Recorded Frequency of Communication w ith Friends and Family More than three times a week 03/12/2019 Frequency of Social Gatherin gs with Friends and Family More than three times a week 03/12/2019 Attends Druze Services Patient declined 01/2019 Active Member of Clubs or Organizations No 03/12/2019 Attends Club or Organization Meetings Never 03/12/2019 Marital Status 03/12/2019 AUDIT-C Answer Date Recorded Frequency of Alcohol Consumption Never 03/05/2019 Average Number of Drinks Not on file 019 Frequency of Binge Drinking Not on file 02/07 Overall Financial Resource Strain (CARDIA) Answe r Date Recorded Difficulty of Paying Living Expenses Not hard at all 03/12/2019 Hunger Vital Sign Answer Date Recorded Worried About Running Out of Food in the Last Ye ar Never true 03/12/2019 Ran Out of Food in the Last Year Never true 03/12/2019 PRAPARE - Transportation Answer Date Re corded Lack of Transportation (Medical) No 03/12/2019 Lack of Transportation (Non-Medical) No 03/12/2019 Comments No Sex and Gender Information Value Date Recorded Sex Assigned at Not on file Legal Sex Female 11:44 AM LITHOPONE CHARGER Gender Identity Not on file Sexual Orientation Not on file Occupation Industry Job Start Date Job End Date retired Not on file Not on file Not on file Obstetrics History Last Filed Vital Signs Vital Sign Reading Time Taken Comments Blood Pressure 165/62 08/08/2023 11:00 AM CDT Pulse 101 03/14/2019 12:20 PM CDT Temperature 36.3 C (97.3 F) 08/05/2020 9:32 AM CDT temporal Respiratory Rate 20 03/14/2019 12:20 PM CDT Oxygen Saturation 97% 03/14/2019 12:20 PM CDT Inhaled Oxygen Concentration - - Weight 58.5 kg (129 lb) 08/08/2023 11:00 AM CDT Height 152.4 cm (5') 08/08/2023 11:00 AM CDT Body Mass Index 25.19 08/08/2023 11:00 AM CDT Plan of Treatment Health Maintenance Due Date Last Done Comments Depression Screening 1942 Fall Risk Assessment 1942 DTaP/Tdap/Td Vaccine (1 - Tdap) 1953 Hepatitis B Screening 1960 Well Visit 65+ 2007 Zoster Vaccine (2 of 3) 09/04/2015 07/10/2015, 01/02 Covid-19 Vaccine (3 - 2023-2 5 season) 2024 12/21/2020, 11/30/2020 Influenza Vaccine (#1) 2024 0, 06/22/2019, 07/20/2018, Additional history exists Osteoporosis Screening-Bone Density Scan 07/28/2025 07/28/2023, 07/28/2023, 05/21/2021, Additional history exists Pneumococcal vaccine 65+ Completed 018, 07/09/2018, 07/10/2017, Additional history exists Medical Devices Implanted Type Area Foot Tender Device Identifier Shelf Expiration Date Model / Serial / Lot [employer] [id number] 54mm Limit Hole Color Coded Hip F Offset Hemisphere Shell - [id number] Implanted:Qty: 1 on 03/11/2019 by Frankie Colón MD at [facility] Right: Hip [employer] 12/17/2028 [id number] / / [id number] [employer] [id number] Trilogy 6.5mm 30mm Self Tap Acetabular Cortical Screw Bone - [id number] Implanted:Qty: 1 on 03/11/2019 by Frankie Colón MD at [facility] Right: Hip [employer] 12/06/2028 [id number] / / [id number] Liner Acetabular G7 E1 F Id36 Mm Hip High Wall - [id number] Implanted:Qty: 1 on 03/11/2019 by Frankie Colón MD at [facility] Right: Hip [employer] 01/22/2024 [id number] / / [id number] [employer] [id number] Taperloc 142mm Type 1 Press Fit Full Profile Hip 133d 11 Standard - [id number] Implanted:Qty: 1 on 03/11/2019 by Frankie Colón MD at [facility] Right: Hip [employer] 04/17/2027 [id number] / / [id number] [employer] [id number] G7 36mm Type 1 Hip -6mm Offset Head Femoral Cocr - [id number] Implanted:Qty: 1 on 03/11/2019 by Frankie Colón MD at [facility] Right: Hip [employer] 09/18/[id number] / / [id number] [place] [address] [facility] [place] [address] MEDICARE [employer] [place] [id number] [place] MEDICARE Advance Directives For more information, please contact: [phone] Documents on File Type Date Recorded Patient Radiology Resident Expl anation ADVANCE DIRECTIVE 03/15/2019 9:43 AM POWER OF FRATERNITY ADVISER-MEDICAL * Full Code (Latest Code Status on File) Date Activated Date Inactivated Comments 03/11/2019 4:52 PM 03/14/2019 8:51 PM Care Teams Property Worker Relationship Specialty Start Date End Date Jennifer Cordero MD PCP - General Geriatric Medicine 08/24/18 Kyle Bryant, ETCH OPERATOR SEMICONDUCTOR WAFERS [facility] Outpatient Transportation Supervisor 03/08/19 Saravanan Curry, SHE [address] [facility] [address] [place] [address] [facility] Outpatient Transportation Supervisor 03/08/19
--- OUTSIDE RECORDS SUMMARY | 2025-01-24 17:36 | XMS_ITS | Referral Summary ---
Author Organization [facility] Physician Office Building [address] [place] [address] Care Team Providers Care Vocal Music Teacher Name Role Phone Jennifer Cordero MD Primary Care Provider + Kyle Bryant TYPING CHECKER Unavailable [phone] Saravanan Curry TYPING CHECKER Unavailable [phone] Allergies Active Allergy Reactions Criticality Noted Date [...] unspecified hyperlipidemia 11/04/2010 Myalgia and myositis 09/10/2009 Social History Tobacco Use Types Packs/Day Years [...] than three times a week 03/12/2019 Attends Jain Services Patient declined 01/2019 Active Member of [...] on file Legal Sex Female 11:44 AM HARDBOARD GRINDER Gender Identity Not on file Sexual Orientation Not on file Occupation Industry Job Start Date Job End Date retired Not on file Not on file Not on file Last Filed Vital Signs [...] 08/08/2023 11:00 AM CDT Plan of Treatment Not on file Medical Devices Implanted Type Area Pipelines Manager Device Identifier Shelf Expiration Date Model / Serial / Lot [employer] [id number] 54mm Limit Hole Color Coded Hip F Offset Hemisphere Shell - [id number] Implanted:Qty: 1 on 03/11/2019 by Frankie Colón MD at [facility] Right: Hip [employer] 12/17/2028 [id number] / / [id number] [employer] [id number] Trilogy 6.5mm 30mm Self Tap Acetabular Cortical Screw Bone - [id number] Implanted:Qty: 1 on 03/11/2019 by Frankie Colón MD at [facility] Right: Hip [employer] 12/06/2028 [id number] / / [id number] Liner Acetabular G7 E1 F Id36 Mm Hip High Wall - [id number] Implanted:Qty: 1 on 03/11/2019 by Frankie Colón MD at [facility] Right: Hip [employer] 01/22/2024 [id number] / / [id number] [employer] [id number] Taperloc 142mm Type 1 Press Fit Full Profile Hip 133d 11 Standard - [id number] Implanted:Qty: 1 on 03/11/2019 by Frankie Colón MD at [facility] Right: Hip [employer] 04/17/2027 [id number] / / [id number] [employer] [id number] G7 36mm Type 1 Hip -6mm Offset Head Femoral Cocr - [id number] Implanted:Qty: 1 on 03/11/2019 by Frankie Colón MD at [facility] Right: Hip [employer] 09/18/[id number] / / [id number] Insurance MEDICARE [place]IC[place] Advance Directives For more information, please contact: [phone] Documents on File Type Date Recorded Patient Marine Scientist Expl anation ADVANCE DIRECTIVE 03/15/2019 9:43 AM POWER OF MARINE EQUIPMENT SALES ENGINEER-MEDICAL * Full Code (Latest Code Status on File) Date Activated Date Inactivated Comments 03/11/2019 4:52 PM 03/14/2019 8:51 PM Care Teams Vocal Music Teacher Relationship Specialty Start Date End Date Jennifer Cordero MD PCP - General Geriatric Medicine 08/24/18 Kyle Bryant, TYPING CHECKER [facility] Outpatient Machine Turner 03/08/19 Saravanan Curry, SHE [address] [facility] [address] [place] [address] [facility] Outpatient Machine Turner 03/08/19
[2025-01-24 17:40] VITALS: BP 172/72; PULSE 81; RESP 14; TEMP 36.6; O2SAT 95
--- OUTSIDE RECORDS SUMMARY | 2025-01-24 19:02 | XMS_ITS ---
Author Name Roman Sheridan Address [address] [place] [address] Phone [phone] [facility] Address [address] [place] [address] Phone [phone] Care Team Providers Care Child Daycare Worker Name Role Phone Roman Sheridan Unavailable Nuvia Grimes Unavailable Jazmin Crandall Unavailable [phone] Functional Status No Results Mental Status No [...]
--- OUTSIDE RECORDS SUMMARY | 2025-01-24 19:02 | XMS_ITS ---
Author Name Roman Sheridan Address [address] [place] [address] Phone [phone] [facility] Address [address] [place] [address] Phone [phone] Care Team Providers Care Truck Crane Operator Helper Name Role Phone Roman Sheridan Unavailable [phone] Nuvia Grimes Unavailable [phone] Jazmin Crandall Unavailable [phone] Functional Status No Results Mental Status [...]
--- OUTSIDE RECORDS SUMMARY | 2025-01-24 19:02 | XMS_ITS | Encounter Summary ---
Author Organization [facility] Address [address] [place] [address] Care Team Providers Care Aircraft Air Conditioning Mechanic Name Role Phone Jennifer Cordero MD Primary Care Provider [phone] Encounter Details Date Type Department Care Team (Late st Contact Info) Description 10/16/2024 Telephone [facility] - Centralized Scheduling [address] [place] [address] Jennifer Cordero MD [address] [id number] Social History Tobacco Use Types Packs/Day Years [...] on filedocumented in this encounter Care Teams Aircraft Air Conditioning Mechanic Relationship Specialty Start Date End Date Jennifer Cordero MD [address] [address] PCP - General 01/16/18 documented as of this encounter
--- OUTSIDE RECORDS SUMMARY | 2025-01-24 19:02 | XMS_ITS | Continuity of Care Document ---
Author Organization [facility] Address [address] [place] [address] Phone Care Team Providers Care Craft Demonstrator Name Role Phone Susan Lopez Unavailable Unavailable Procedures Procedure Date Eye Exam & Treatment SV Poly Carb Sph Howe To +/- 4 009 Frames Deluxe [facility] SV Poly Carb Sph +/- 7.12 To +/- 20 D Ma [facility] Eye Exam & Treatment Office/outpatient Visit, Est Eye Exam Established Pt Advance Directives Directive Yes / No Effective Date File Name No Information Encounters Encounter Description Practice Location Reason(s) For Visit Diagnoses Date Provider Providers Copied on Encounter [facility], [address] [place] [address] [address], [place], [place], [address], [place] tel:[phone] [facility] No Information 2-201 0 Jessica Davis. [address] [facility] [address] , [address], [place], [address], [place]. tel:[phone] [facility], [address] [place] [address] [address], [place], [place], [address], [place] tel:[phone] [facility] No Information 1-200 9 [facility] . [address] [facility], [address], [place], [place], [address], [place]. tel:[phone] Referring Provider: Susan Alva, [address] [facility] [address], [place], [address]. tel:[phone] ana Provider: Cornel Monroe [address] [place], [place] [address]ate Ctr, [place], [address]. tel:[phone] [facility], [address] [place] [address] [address], [place], [place], [address], [place] tel:[phone] [facility] [place] No Information February-2 1-200 9 [facility] . [address] [facility], [address], [place], [place], [address], [place]. tel:[phone] Referring Provider: Susan Alva, [address] [place], [place] [address]ate [address], [place], [place], [facility]. tel:[phone] perez Provider: Cornel Monroe, [address] [place], [place] [address]ate [facility], [place], [address]. tel:[phone] [facility], [address] [place] [address] [address], [place], [place], [address], [place] tel:[phone] [facility] [place] No Information Apr-0 9-200 9 Jessica Davis. [facility] [place] , [address], [place], [place], [facility], [place]. tel:[phone] Office/outpat ient Visit, [facility], [address] [place] [address] [address], [place], [place], [address], [place] tel:[phone] [facility] [place] No Information Apr-1 0-200 8 Jessica Wren [address], [place], [address], [place]. tel:[phone] [facility], [address] [place] [address] [address], [place], [place], [address], [place] tel:[phone] [facility] [place] No Information Oct-0 4-200 7 Jessica Perez [facility] , [address], [place], [address], [place]. tel:[phone] Family History Family Member Type Diagnosis Age At Onset No Information Payers Payer name Insurance type Covered libertarian ID Daya medina(s) [facility] Commercial CI [id number] Social History Type Description Quantity Date Captured [...]
--- OUTSIDE RECORDS SUMMARY | 2025-01-24 19:02 | XMS_ITS | Encounter Summary ---
Author Organization [facility] Address [address] [place] [address] Care Team Providers Care Windrower Operator Name Role Phone Jennifer Cordero MD Primary Care Provider [phone] Reason for Visit * Reason Onset Date Comments Referral Request 12/27/2023 Encounter Details Date Type Department Care Team (Late st Contact Info) Description 12/27/2023 Telephone [facility] - Centralized Scheduling [address] [place] [address] Jennifer Cordero MD [address] [address] Referral Request Social History Tobacco [...] to [facility] (See 12/22/23 clinic note) as they have yet to receive the fax from us. Daughter provided the fax numbers below. [facility] Electronic fax [phone] Physical fax [phone] Patient Call Back number: [phone] documented in this encounter Plan of Treatment Not on file documented as of this encounter Visit Diagnoses Not on filedocumented in this encounter Care Teams Windrower Operator Relationship Specialty Start Date End Date Jennifer Cordero MD [address] [address] PCP - General 01/16/18 documented as of this encounter
--- OUTSIDE RECORDS SUMMARY | 2025-01-24 19:02 | XMS_ITS | Encounter Summary ---
Author Organization [facility] Address [address] [facility] [place] [address] Care Team Providers Care Carpet Journeyman Name Role Phone Jennifer Cordero MD Primary Care Provider [phone] Reason for Visit * Reason Onset Date Comments MEDICATION REFILL 05/04/2024 Encounter Details Date Type Department Care Team (Late st Contact Info) Description 05/04/2024 Refill [facility] - Geriatrics [address] [place] [id number] Jennifer Cordero MD [address] [address] MEDICATION REFILL Social History Tobacco [...] on filedocumented in this encounter Care Teams Carpet Journeyman Relationship Specialty Start Date End Date Jennifer Cordero MD [address] [address] PCP - General 01/16/18 documented as of this encounter
--- OUTSIDE RECORDS SUMMARY | 2025-01-24 19:02 | XMS_ITS | Encounter Summary ---
Author Organization [facility] Address [address] [facility] [place] [address] Care Team Providers Care Cancer Spec Name Role Phone Jennifer Cordero MD Primary Care Provider [phone] Encounter Details Date Type Department Care Team (Late st Contact Info) Description 09/26/2018 Telephone [facility] [address] [place] [address] Kaleigh Harris MD No information [...] on filedocumented in this encounter Care Teams Cancer Spec Relationship Specialty Start Date End Date Jennifer Cordero MD [address] [address] PCP - General 01/16/18 documented as of this encounter
--- OUTSIDE RECORDS SUMMARY | 2025-01-24 19:03 | XMS_ITS | Clinical Summary ---
Author Organization [facility] Physician Office Building [address] [place] [address] Care Team Providers Care Promotions Manager Name Role Phone Jennifer Cordero MD Primary Care Provider + Kyle Bryant COMMANDER INTERNAL AFFAIRS Unavailable [phone] Saravanan Curry COMMANDER INTERNAL AFFAIRS Unavailable [phone] Allergies Active Allergy Reactions Criticality Noted Date [...] than three times a week 03/12/2019 Attends Scientology Services Patient declined 01/2019 Active Member of [...] on file Legal Sex Female 11:44 AM UPSETTING MACHINE OPERATOR Gender Identity Not on file Sexual Orientation [...] history exists Medical Devices Implanted Type Area Collections Curator Device Identifier Shelf Expiration Date Model / Serial / Lot [employer] [id number] [id number] 54mm Limit Hole Color Coded Hip F Offset Hemisphere Shell - [id number] Implanted:Qty: 1 on 03/11/2019 by Frankie Colón MD at [facility] Right: Hip [employer] 12/17/2028 [id number] / / [id number] [employer] [id number] Trilogy 6.5mm 30mm Self Tap Acetabular Cortical Screw Bone - [id number] Implanted:Qty: 1 on 03/11/2019 by Frankie Colón MD at [facility] Right: Hip [employer] 12/06/2028 [id number] / / [id number] Liner Acetabular G7 E1 F Id36 Mm Hip High Wall - [id number] Implanted:Qty: 1 on 03/11/2019 by Frankie Colón MD at [facility] Right: Hip [employer] 01/22/2024 [id number] / / [id number] [employer] [id number] Taperloc 142mm Type 1 Press Fit Full Profile Hip 133d 11 Standard - [id number] Implanted:Qty: 1 on 03/11/2019 by Frankie Colón MD at [facility] Right: Hip [employer] 04/17/2027 [id number] / / [id number] [employer] [id number] G7 36mm Type 1 Hip -6mm Offset Head Femoral Cocr - [id number] Implanted:Qty: 1 on 03/11/2019 by Frankie Colón MD at [facility] Right: Hip [employer] 09/18/[id number] / / [id number] Insurance MEDICARE [facility] [place] [address] MEDICARE [employer] [place] [id number] [place] MEDICARE Advance Directives For more information, please contact: [phone] Documents on File Type Date Recorded Patient Citizenship Instructor Expl anation ADVANCE DIRECTIVE 03/15/2019 9:43 AM POWER OF DETECTIVE LIEUTENANT-MEDICAL * Full Code (Latest Code Status on File) Date Activated Date Inactivated Comments 03/11/2019 4:52 PM 03/14/2019 8:51 PM Care Teams Promotions Manager Relationship Specialty Start Date End Date Jennifer Cordero MD PCP - General Geriatric Medicine 08/24/18 Kyle Bryant, COMMANDER INTERNAL AFFAIRS [facility] Outpatient Manager Of Distribution 03/08/19 Saravanan Curry, SHE [address] [facility] [address] [place] [address] [facility] Outpatient Manager Of Distribution 03/08/19
--- OUTSIDE RECORDS SUMMARY | 2025-01-24 19:03 | XMS_ITS | Clinical Summary ---
Author Organization [facility] [employer] Address [address] [place] [address] Care Team Providers Care Ceo And President Name Role Phone Jennifer Cordero MD Primary Care Provider [phone] Source Comments [facility] [employer]non-owned Affiliates and Associated Physician Practices is amultiple site organization consisting of ambulatory clinics and hospital sitesin [place], [place], [place] and [place]. This disclosure is being madepursuant to the Care Everywhere program and may not contain all information available regarding this patient. Last updated 18.[facility] [employer] Allergies Active Allergy Reactions Criticality Noted Date [...] Telephone [facility] - Centralized Scheduling [facility] [place] [address] Jennifer Cordero MD Physical Therapy from Last 3 Months Immunizations Immunization Administration Dates Next Due INFLUENZA VACCINE, TRIV. (AF LURIA, FLUZONE TRIVALENT; 6MO+) (IIV3) 07/04/2014 Covid TagCash primary monoval ent 12+ yr 0.3mL Purple [...] Comments Blood Pressure 132/84 08/20/2024 2:42 PM WELL CLEANER Pulse 84 08/20/2024 2:42 PM WELL CLEANER Temperature 36.9 C (98.5 F) 04/19/2024 11:09 AM CDT Respiratory Rate 20 12/08/2023 11:26 AM WELL CLEANER Oxygen Saturation 96% 04/19/2024 11:09 AM CDT [...] this topic Medical Devices Implanted Type Area Casino Cashier Device Identifier Shelf Expiration Date Model / Serial / Lot Lens Iol +23.5 Ronan Hpt C Bcnvx [employer]ecnis - [id number] Implanted:Qty: 1 on 09/19/2018 by Kaleigh Harris MD at [facility] Left: Eye [employer] 07/12/2021 [id number] / [id number] / Lens Iol +23 Ronan Mod C Bcnvx Tecnis - [id number] Implanted:Qty: 1 on 11/14/2018 by Kaleigh Harris MD at [facility] Right: Eye [employer] 07/24/2021 [id number] / [id number] / Procedures Procedure Name Priority Date/Time Associated Diagnosis Comments DEXA BONE DENSITY AXIAL SKELETON Routine 07/28/2023 11:17 AM CDT Osteopenia of multiple sites from Last 3 Months or Most Recently Relevant to Health Maintenance Results * BONE DENSITY AXIAL SKELETON(1OR MORE SITES)[id number] (07/28/2023 11:17 AM CDT) Anatomical Region Laterality Modality Other 07/31/2023 2:07 PM CDT Narrative 07/31/2023 3:25 PM CDT PROCEDURE: DEXA BONE DENSITY AXIAL SKELETON, DATE/TIME OF EXAM: 07/28/2023 11:18 AM, LOCATION [facility] INDICATION: M85.89: Osteopenia of multiple sites [...] below > Dictated by Rayna Enamorado MD (Insole And Outsole Splitter) 07/31/2023 2:07 PM ILanden DO have personally reviewed and interpreted this examination/study. > Interpreting Provider: Landen Nelson DO on 07/31/2023 3:25 PM Procedure Note Landen Nelson DO - 10/31/2023 PROCEDURE: DEXA BONE DENSITY AXIAL SKELETON, DATE/TIME OF EXAM: 07/28/2023 11:18 AM, LOCATION [facility] INDICATION: M85.89: Osteopenia of multiple sites [...] below > Dictated by Rayna Enamorado MD (Insole And Outsole Splitter) 07/31/2023 2:07 PM I, Landen Nelson DO have personally reviewed and interpreted this examination/study. 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
--- OUTSIDE RECORDS SUMMARY | 2025-01-24 19:03 | XMS_ITS | Referral Summary ---
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 Gender Identity Not on file Sexual [...] on file Medical Devices Implanted Type Area Flooring Mechanic Device Identifier Shelf Expiration Date Model / Serial / Lot [employer] [id number] 54mm Limit Hole Color Coded Hip F Offset Hemisphere Shell - [id number] Implanted:Qty: 1 on 03/11/2019 by Frankie Colón MD at [facility] Right: Hip [employer] 12/17/2028 [id number] / / [id number] [employer] [id number] Trilogy 6.5mm 30mm Self Tap Acetabular Cortical Screw Bone - [id number] Implanted:Qty: 1 on 03/11/2019 by Frankie Colón MD at [facility] Right: Hip [employer] 12/06/2028 [id number] / / [id number] Liner Acetabular G7 E1 F Id36 Mm Hip High Wall - [id number] Implanted:Qty: 1 on 03/11/2019 by Frankie Colón MD at [facility] Right: Hip [employer] 01/22/2024 [id number] / / [id number] [employer] [id number] Taperloc 142mm Type 1 Press Fit Full Profile Hip 133d 11 Standard - [id number] Implanted:Qty: 1 on 03/11/2019 by Frankie Colón MD at [facility] Right: Hip [employer] 04/17/2027 [id number] / / [id number] [employer] [id number] G7 36mm Type 1 Hip -6mm Offset Head Femoral Cocr - [id number] Implanted:Qty: 1 on 03/11/2019 by Frankie Colón MD at [facility] Right: Hip [employer] 09/18/[id number] / / [id number] Insurance MEDICARE [place] MEDICARE [place] MEDICARE Advance Directives For more information, please contact: [phone] Documents on File Type Date Recorded 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 Expl 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
--- NOTE | 2025-01-24 19:23 | PC.NURSE ---
Pt taken to CT in w/c by tech
--- NOTE | 2025-01-24 19:29 | ED.GENADULT ---
HPI - General Adult General Chief complaint: Neck Pain/Injury Stated complaint: stiff neck that past several weeks, no trauma Time Seen by Provider: 01/24/25 18:26 History of Present Illness HPI narrative: 84-year-old female presenting to the emergency department for evaluation for neck pain that is worse on the right than the left. Patient did previous episode of neck pain that improvedBut then worsened again over the last few days. Patient did have possible fall from her bed a few weeks ago. Patient has been taking Tylenol for pain control without significant improvement. Patient denies any associated numbness or weakness. Related Data Home Medications ?Medication ?Instructions ?Recorded ?Confirmed ?Last Taken ?Type donepezil 10 mg tablet (Aricept) 10 mg PO DAILY 07/25/24 10/29/24 Unknown History glucosamine sulfate 500 mg tablet 500 mg PO DAILY 10/13/24 10/29/24 Unknown History (Glucosamine) memantine 10 mg tablet mg PO ONCE 10/29/24 10/29/24 Unknown History sertraline 50 mg tablet mg PO DAILY 10/29/24 10/29/24 Unknown History Allergies Allergy/AdvReac Type Severity Reaction Status Date / Time shellfish derived Allergy Unknown Hives Verified 01/24/25 17:38 ibuprofen AdvReac Hives Verified 01/24/25 17:38 Review of Systems Review of Systems: All systems reviewed & are unremarkable except as noted in HPI and below PMFSH Past Medical History Medical History (Updated 01/24/25 @ 19:38 by Kayden Saldana MD) Debility Heart murmur Dementia Surgical History Surgical History (Updated 10/29/24 @ 10:05 by Celeste Wilson) History of hip replacement 2019 Family History Family History (Updated 10/13/24 @ 02:59 by Danielle Rico RN) Other Unknown family medical history Social History Social History (Updated 10/29/24 @ 10:06 by Celeste Wilson) Smoking status: Never smoker Alcohol intake: never Substance use: never Substance use type: does not use Do You Feel Safe in your Home?: Yes Lack of Transportation: No Lack of Food: Never True Current Housing: I Have Housing Concerned About Future Housing: No Difficulty Paying Gas/Electric Bills: No Difficulty Paying for Meds: No Currently Unemployed: No Education: Master's Degree or Higher Difficulty w/ Childcare or Family Care: No Spiritual care concerns: No Agree to blood products: Yes Exam Narrative: APPEARANCE: Well appearing, no pain, no distress, well-nourished. HEAD: normocephalic, atraumatic. EYES: PERRLA/EOMI, conjunctivae clear. NOSE: Normal no drainage EARS:TMS clear with good light reflex. THROAT: Pharynx clear, no exudate. NECK: Supple. No adenopathy, no masses. RESPIRATORY: Airway patent, respirations nonlabored. Clear to auscultation bilaterally, no rales, rhonchi, wheezing. CARDIOVASCULAR: Regular rate and rhythm without murmurs rubs or gallops. ABDOMINAL: Soft, nontender, nondistended, normal bowel sounds MUSCULOSKELETAL: Moves all extremities. Strength/ROM intact, No edema, No calf tenderness. NEURO: Alert. Cranial nerves II through XII intact. Grossly intact SKIN: Warm, dry. Normal Color Course Vital Signs Vital signs: Vital Signs Temperature 97.9 F 01/24/25 17:40 Pulse Rate 81 01/24/25 17:40 Respiratory Rate 14 01/24/25 17:40 Blood Pressure 172/72 H 01/24/25 17:40 Pulse Oximetry 95 01/24/25 17:40 Temperature 97.9 F 01/24/25 17:40 Pulse Rate 78 01/24/25 21:04 Respiratory Rate 16 01/24/25 21:04 Blood Pressure 158/89 H 01/24/25 21:04 Pulse Oximetry 94 01/24/25 21:04 Medical Decision Making MDM Narrative Medical decision making narrative: 84-year-old female presents emergency department for evaluation for right-sided neck strain. Patient's exam is consistent with a trapezius strain involving the lateral cervical neck. CTs were negative for acute fracture dislocation. Patient was provided Medrol Dosepak, [place] and Flexeril for pain control. Differential Diagnosis Differential Diagnosis: Cervical spine fracture, muscular strain Vital Signs Vital Signs: Vital Signs Temperature 97.9 F 01/24/25 17:40 Pulse Rate 81 01/24/25 17:40 Respiratory Rate 14 01/24/25 17:40 Blood Pressure 172/72 H 01/24/25 17:40 Pulse Oximetry 95 01/24/25 17:40 Temperature 97.9 F 01/24/25 17:40 Pulse Rate 78 01/24/25 21:04 Respiratory Rate 16 01/24/25 21:04 Blood Pressure 158/89 H 01/24/25 21:04 Pulse Oximetry 94 01/24/25 21:04 Imaging Data Radiologist's impression: Impressions Cervical Spine CT 01/24/25 20:20 IMPRESSION: No acute osseous abnormality cervical spine. Multilevel degenerative disc disease. Discharge Plan Discharge Clinical Impression: Acute neck pain Patient Disposition: Home Condition: Stable Instructions: Antibiotic Form, Cervical Strain (ED), Neck Pain (ED) Additional Instructions: Tylenol for pain control. Replace the Tylenol with [place] for additional pain control. Do not take Tylenol and [place] at the same time as both do contain acetaminophen. Flexeril as needed for muscle spasm. Medrol Dosepak as directed until completed. Have close follow-up with your primary care physician. Patient Language: [place] Citizen Prescriptions: New hydrocodone-acetaminophen 5-325 mg tablet 1 tablet PO Q12H PRN (Reason: pain) Qty: 10 0RF cyclobenzaprine 10 mg tablet 10 mg PO BID PRN (Reason: muscle spasm) Qty: 14 0RF methylprednisolone [Medrol (Gavin)] 4 mg tablets,dose pack See Rx Instructions .ROUTE .COMPLEX Qty: 21 0RF Rx Instructions: for 6 days No Action donepezil [Aricept] 10 mg Tablet 10 mg PO DAILY memantine 10 mg tablet PO ONCE sertraline 50 mg tablet PO DAILY glucosamine sulfate [Glucosamine] 500 mg tablet 500 mg PO DAILY Rx Instructions: administer with a meal Paxlovid 300 mg (150 mg x 2)-100 mg tablets,dose pack See Rx Instructions PO .COMPLEX Qty: 30 0RF Rx Instructions: Take TWO 150 mg tablets (300 mg) of Nirmatrelvir with ONE 100 mg tablet of Ritonavir twice daily for 5 days by mouth. acetaminophen [8 Hour Pain Reliever] 650 mg tablet extended release 650 mg PO Q6H PRN (Reason: pain, fever) Qty: 30 0RF guaifenesin 400 mg tablet 400 mg PO QID PRN (Reason: cough) Qty: 20 0RF Follow-up/Referrals: Jeane Huntley DO [Primary Care Provider] -
[2025-01-24] MEDS: HYDROcodone/acetaminophen (*CRX) 5-325 MG TABLET 1 TAB PO (19:33)
[2025-01-24] MEDS: CYCLOBENZAPRINE HCL 10 MG TABLET PO (19:34)
--- NOTE | 2025-01-24 19:41 | PC.NURSE ---
pt presents to ED c/o stiff neck, limited range of motion.Pt denies trauma, Per daughter she believes pt slept wrong.
[2025-01-24 21:04] VITALS: BP 158/89; PULSE 78; RESP 16; O2SAT 94
== END 2025-01-24 21:14 | disposition home or self-care (01) ==
PROVIDERS: Emergency Provider Emergency Medicine; PCP Family Medicine
DX: M54.2 Cervicalgia (principal); F03.90 Unspecified dementia, unspecified severity, without behavioral disturbance, psychotic disturbance, mood disturbance, and anxiety; Z96.649 Presence of unspecified artificial hip joint; M50.31 Other cervical disc degeneration, high cervical region; M48.02 Spinal stenosis, cervical region
CPT/HCPCS: 72125; 99284; A9270